=== PATIENT | female | born 1945 | race Caucasian/White ===

== ENCOUNTER → 2023-07-06 15:10 | Outpatient (REF) | payer MEDICARE, BC, SELFPAY | LOC: RAD 15:10 | PROVIDERS: ATTENDING PHYSICIAN Internal Medicine Hematology & Oncology; FAMILY PHYSICIAN Family Medicine | DX: I82.411 Acute embolism and thrombosis of right femoral vein (principal); D64.9 Anemia, unspecified; I82.91 Chronic embolism and thrombosis of unspecified vein | CPT/HCPCS: 71250; 74176; 93971 ==

== ENCOUNTER → 2023-09-18 11:00 | Outpatient (REF) | payer MEDICARE, BC, SELFPAY | LOC: HWRCS 11:00 | PROVIDERS: ATTENDING PHYSICIAN Internal Medicine Nephrology; FAMILY PHYSICIAN Family Medicine | DX: I31.9 Disease of pericardium, unspecified (principal) | CPT/HCPCS: 93306 ==

== ENCOUNTER → 2024-01-02 13:30 | Outpatient (REF) | payer MEDICARE, BC, SELFPAY | LOC: HWWDC 13:30 | PROVIDERS: ATTENDING PHYSICIAN Family Medicine | DX: Z12.31 Encounter for screening mammogram for malignant neoplasm of breast (principal) | CPT/HCPCS: 77063; 77067 ==

== ENCOUNTER 2024-12-06 11:12 | Emergency (ER) | payer MEDICARE, BC, SELFPAY ==
[2024-12-06] VITALS (8 sets, daily range): BP systolic 91–137; BP diastolic 38–64; BMI 18.8
[2024-12-06 13:14] LABS: Hematocrit 32.8 % (37.0-47.0); Hemoglobin 10.3 g/dL (12.0-16.0); Mean Corp Hgb Conc. 31.4 g/dL (33.0-37.0); Mean Corpuscular Volume 83.9 fL (81.0-99.0); Nucleated Red Blood Cells % 0 %; Platelet Count 397 10^3/uL (130-400); Red Cell Dist. Width 17.0 % (11.5-14.5)
[2024-12-06 13:33] LABS: ALT (SGPT) 12 U/L (0-35); AST (SGOT) 19 U/L (14-36); Albumin 2.5 g/dl (3.5-5.0); Alkaline Phosphatase 103 U/L (38-126); Blood Urea Nitrogen 31 mg/dl (7-17); Calcium 8.4 mg/dl (8.4-10.2); Carbon Dioxide 32 mmol/L (22-30); Chloride 95 mmol/L (98-107); Estimated Creatinine Clearance 12 ml/min; Glucose 79 mg/dl (70-99); Lipase 40 U/L (23-300); Potassium 3.1 mmol/L (3.5-5.1); Sodium 131 mmol/L (135-145); Total Protein 6.1 g/dl (6.3-8.2); eGFR 15.77
[2024-12-06] MEDS: OFIRMEV 100 IV (14:06)
--- NOTE | 2024-12-06 14:13 | ED.GENMED ---
History of Present Illness
General
Chief Complaint: Abdominal Symptoms
Source: patient, spouse and family
Exam Limitations: none
Time Seen by Provider: 12/06/24 11:43
Nursing documentation reviewed up to this point in time: agreed with
History of Present Illness
History of Present Illness:
79-year-old female past medical history of hypertension hyperlipidemia, end-stage renal disease currently on dialysis Monday, previous kidney transplant presenting to the emergency department today with concerns of diarrhea and
feeling lightheaded concern for dehydration. Was sent in by the primary care doctor.
Past History
Past History
ED Past Medical History: HTN, Hypercholesterolemia and Renal failure
ED Past Surgical History: Other (History of a kidney transplant)
Social History
Tobacco: Non-smoker
Alcohol: None
Drug: None
Personal:
Living: with family
Employment: Retired
Review of Systems
Review of Systems
Allergies reviewed?: Yes
All Other Systems: ROS reviewed and negative except as documented in HPI and ROS
Phy Exam
Physical Exam
Physical Exam:
GENERAL: Alert , in no apparent distress
EYE: pupils equal and reactive
NECK: Supple, no significant adenopathy.
ENT: o/p clr, mmm.
CARDIAC: Regular rate and rhythm .
LUNGS: Clear breath sounds bilaterally, no acute respiratory distress, no wheezes/rales/rhonchi
ABDOMEN: Soft, without focal tenderness, no r/g, no cvat
NEUROLOGICAL: Alert and oriented, no focal neuro deficits
SKIN: Warm and dry, skin intact.
MUSCULOSKELETAL: No edema, well perfused.
PSYCH: Normal and appropriate interaction.
Sepsis
Sepsis Screening
Sepsis Assessment: Sepsis Ruled Out
Sepsis Screen
Sepsis Screen: Sepsis Ruled Out
Date: 12/06/24
Time: 18:03
Course
Orders/Labs/Results
Orders:
Orders
12/06/24 12:02
Urinalysis Reflex To Culture Urgent
Date Specimen was Collected: 12/06/24
Time Specimen was Collected: 16:09
Iohexol [Omnipaque] See Protocol PO NOW STA
12/06/24 12:03
EKG [Electrocardiogram (*1)] Urgent
Reason for Study: Fatigue / Weakness
CT Abd/pel W Iv And Oral Contr Urgent
Comment:
Reason For Exam: LLQ abd pain, on dialysis
EKG- Treatment ONCE
Acetaminophen 1000MG/100Ml [Ofirmev] 1,000 mg in 100 ml IV ONCE
Acetaminophen IV Indication:: No MD & No Enteral Access
12/06/24 12:34
Complete Blood Count/With Diff Urgent
Comprehensive Metabolic Panel Urgent
Lactic Acid Urgent
Lipase Urgent
12/06/24 14:15
0.9% Sodium Chloride 500 ml [Nss] 500 ml IV BOLUS
Iohexol [Omnipaque] See Protocol PO NOW STA
Abnormal Lab Results
12/06/24
12:34
RBC 3.91 L 10^6/uL
(4.20-5.40)
Hgb 10.3 L g/dL
(12.0-16.0)
Hct 32.8 L %
(37.0-47.0)
MCH 26.3 L pg
(27.0-31.0)
MCHC 31.4 L g/dL
(33.0-37.0)
RDW 17.0 H %
(11.5-14.5)
Abs Immat Gran (auto) 0.2 H 10^3/uL
(0-0.05)
Absolute Monos (auto) 1.2 H 10^3/uL
(0.1-0.6)
Immature Gran % 2.2 H %
(0-0.5)
Monocytes % 15.5 H %
(1.7-9.3)
Sodium 131 L mmol/L
(135-145)
Potassium 3.1 L mmol/L
(3.5-5.1)
Chloride 95 L mmol/L
(98-107)
Carbon Dioxide 32 H mmol/L
(22-30)
BUN 31 H mg/dl
(7-17)
Creatinine 2.9 H mg/dL
(0.6-1.0)
Total Protein 6.1 L g/dl
(6.3-8.2)
Albumin 2.5 L g/dl
(3.5-5.0)
12/06/24 12:34
12/06/24 12:34
Vital Signs
Initial and Last Documented VS:
Initial Vital Signs
Temp Pulse Resp BP Pulse Ox
100.7 F H 115 20 137/64 98
12/06/24 11:17 12/06/24 11:17 12/06/24 11:17 12/06/24 11:17 12/06/24 11:17
Last Documented Vital Signs
Temp Pulse Resp BP Pulse Ox
99.4 F 97 24 113/50 100
12/06/24 12:25 12/06/24 16:00 12/06/24 15:00 12/06/24 16:00 12/06/24 16:00
MDM/Problems Addressed
MDM/Problems Addressed:
79-year-old female presenting to the emergency department today with concerns of feeling weak and tired as well as having diarrhea starting yesterday. Concern of dehydration. Mildly tachycardic on arrival temperature. No white count hemoglobin is
at patient's baseline otherwise labs showing slightly low potassium and sodium level. Renal function tests are at patient's baseline. Slight lab abnormalities were discussed with the patient. CT scan was performed that had changes consistent and
concerning for urinary tract infection. This was explained to the patient thoroughly that this could be a start of a severe illness and that she should be brought in for IV antibiotics and close monitoring. She claims that she would like to go
home she understands the potential risk the potential life threat. This is also cussed with the patient's daughter who understood the ramifications if this is a worsening infection. She was started on oral antibiotic and advised to very close
follow-up and advised to immediately return for any change of mind.
*Pulse Oximetry
SaO2: 93
Oxygen Mode of Delivery: Room air
Patient hypoxic: no (100)
*Critical Care Note
Total Time (30-74mins, 75-104mins- exclusive of procedures): Not Applicable
ED Attending Note
-
Portions of this chart may have been created with voice recognition software.� Occasional wrong word or��sound alike� substitutions may have occurred due to the inherent limitations of voice recognition software.
Discharge Plan
Departure
Patient Disposition: Home (Routine Discharge)
Date of Disposition: 12/06/24
Time of Disposition: 18:00
Patient with high blood pressure during this ER visit?: No
Condition: Fair
Covid-19: Not Applicable
Discharge Problem:
Acute pyelonephritis
Instructions: Urinary tract infections in adults, Leaving Against Medical Advice
Prescriptions:
New
cefpodoxime 200 mg tablet
200 mg PO BID 14 Days Qty: 28 0RF
No Action
cyclosporine modified 25 MG capsule
50 mg PO BID
amlodipine 5 MG tablet
5 mg PO DAILY
propranolol 20 MG tablet
20 mg PO BID
furosemide 40 MG tablet
40 mg PO DAILY
atorvastatin 10 MG tablet
10 mg PO QPM
Centrum Silver 1 EACH tablet
1 ea PO DAILY
cholecalciferol (vitamin D3) 2,000 UNITS tablet
2,000 units PO DAILY
pantoprazole 40 MG tablet,delayed release (DR/EC)
40 mg PO DAILY
carboxymethylcellulose sodium 1 % Drops, Liquid Gel
1 drp OPHTHALMIC (EYE) TID PRN (Reason: dry eyes)
Eliquis 5 mg tablet
5 mg PO BID Qty: 90 0RF
Rx Instructions:
2 tabs (10mg) twice daily x 10 doses, then 1 tab (5mg) twice daily.
Referrals:
Russel Zee MD [Family Provider, [facility]]
Activity Restrictions/Additional Instructions:
Here you were found to have slightly low potassium and sodium level. Additionally there was concern for urinary tract infection on the CT scan. It was recommended to get IV antibiotics and stay in the hospital. Bleeding does put you at potential
risk of worsening illness or . Please take the prescribed antibiotic and follow-up very closely with your hook up. Immediately return for any changes or worsening in symptoms. You can also immediately return for any change of mind.
Interventions
Interventions:
*Risk Screen - Suicide Last Done: 12/06/24 11:17
*General Assessment Last Done: 12/06/24 11:17
*Neglect/Abuse Screening Last Done: 12/06/24 11:17
*ED- Fall Risk Assessment Last Done: 12/06/24 12:29
*ED COVID-19 Vaccine History Last Done: 12/06/24 12:29
ZK-Xdyzvh-Agahxjqhwk Assessment Last Done: 12/06/24 12:29
Discharge Date and Time
Print Language: DJIBOUTIAN
[2024-12-06] MEDS: NSS 500 IV (14:22)
[2024-12-06] MEDS: OMNIPAQUE 50 ML PO (14:26)
== END 2024-12-06 19:05 | disposition home or self-care (01) ==
LOC: EMR 11:12
PROVIDERS: Physician Assistant; EMERGENCY PHYSICIAN Emergency Medicine; FAMILY PHYSICIAN Family Medicine
DX: N10 Acute pyelonephritis (principal); E78.00 Pure hypercholesterolemia, unspecified; I12.0 Hypertensive chronic kidney disease with stage 5 chronic kidney disease or end stage renal disease; N18.6 End stage renal disease; Z99.2 Dependence on renal dialysis; Z94.0 Kidney transplant status
CPT/HCPCS: 96374; 99284; 74177; 80053; 83605; 83690; 85025; 93005; Q9967

== ENCOUNTER 2024-12-28 02:28 | Inpatient (IN) | payer MEDICARE, BC, SELFPAY ==
[2024-12-27 16:48] VITALS: BP 119/51
[2024-12-27 17:08] LABS: Hematocrit 31.0 % (37.0-47.0); Hemoglobin 9.7 g/dL (12.0-16.0); Mean Corp Hgb Conc. 31.3 g/dL (33.0-37.0); Mean Corpuscular Volume 84.9 fL (81.0-99.0); Nucleated Red Blood Cells % 0 %; Platelet Count 369 10^3/uL (130-400); Red Cell Dist. Width 17.8 % (11.5-14.5)
[2024-12-27 17:21] LABS: COVID-19 Antigen Negative (Negative)
[2024-12-27 18:21] LABS: ALT (SGPT) < 10 U/L (0-35); AST (SGOT) 17 U/L (14-36); Albumin 2.5 g/dl (3.5-5.0); Alkaline Phosphatase 112 U/L (38-126); Blood Urea Nitrogen 27 mg/dl (7-17); Calcium 8.6 mg/dl (8.4-10.2); Carbon Dioxide 25 mmol/L (22-30); Chloride 101 mmol/L (98-107); Glucose 84 mg/dl (70-99); Potassium 4.3 mmol/L (3.5-5.1); Sodium 131 mmol/L (135-145); Total Protein 6.6 g/dl (6.3-8.2); eGFR 15.77
[2024-12-27 20:19] VITALS: BP 123/50
[2024-12-27 21:00] VITALS: BP 120/47
[2024-12-27 22:14] VITALS: BMI 22.2
[2024-12-27 22:42] LABS: Urine Character Bloody (Clear)
[2024-12-27 23:10] LABS: Urine Red Blood Cell >100 /HPF (0-2); Urine White Cell >100 /HPF (0-5)
[2024-12-28] VITALS (8 sets, daily range): BP systolic 112–158; BP diastolic 49–78; BMI 20.9
--- NOTE | 2024-12-28 00:24 | ED.GENMED ---
History of Present Illness
General
Chief Complaint: Weakness
Source: patient
Exam Limitations: none
Time Seen by Provider: 12/27/24 20:10
Nursing documentation reviewed up to this point in time: agreed with
History of Present Illness
History of Present Illness:
Patient to ED [facility] complaint of extreme weakness. Symptoms started this AM. Unable to get self OOB without max assistance. Denies fever/chills. Reports poor appetite. To ED accompanied by sister
History of renal failure. Transplant recipient >20years ago. That kidney began to fail and she started dialysis in May. Last week she had a graft placed in left arm. No bruit, no thrill. She states her vascular provider is aware and is
scheduled to see her this week.
Past History
Past History
ED Past Medical History: HTN, Hypercholesterolemia and Renal failure
ED Past Surgical History: Other (History of a kidney transplant)
Social History
Tobacco: Non-smoker
Alcohol: None
Drug: None
Personal:
Living: with family
Employment: Retired
Review of Systems
Review of Systems
Allergies reviewed?: Yes
All Other Systems: ROS reviewed and negative except as documented in HPI and ROS
Constitutional: Reports fatigue
EENT: Reports no symptoms
Respiratory: Reports no symptoms
Cardiac: Reports no symptoms
ABD/GI: Reports anorexia
: Reports no symptoms (Kidney transplant>20yrs ago. Dialysis patient t,thur,sat)
Musculoskeletal: Reports no symptoms
Skin: Reports no symptoms
Neurological: Reports weakness
Psychiatric: Reports no symptoms
Phy Exam
General Physical Exam
General Presentation: mild distress
General age: appears stated age
General Skin: warm and dry
General Habitus: elderly and frail
General Mental: alert
Cardiovascular Exam
Cardiovascular Exam: regular rate/rhythm and no edema
Pulmonary Exam
Pulmonary Exam: lungs clear and no respiratory distress
Gastrointestinal Exam
Gastrointestinal Exam: normal bowel sounds, non tender and soft
Neurological Exam
Neurological Exam: alert and oriented x3
Musculoskeletal Exam
Musculoskeletal Exam: full ROM and neuro vasc intact
Skin Exam
Skin Exam: normal color, warm/dry and no rash
Psychiatric Exam
Psychiatric Exam: normal mood/affect
Course
Orders/Labs/Results
Orders:
Orders
12/27/24 16:55
CBC/With Diff [Complete Blood Count/With Diff] Urgent
CMP [Comprehensive Metabolic Panel] Urgent
COVID-19 Antigen Urgent
Source: Nasal Swab
12/27/24 19:33
Electrocardiogram (*1) Urgent
Reason for Study: Fatigue / Weakness
EKG- Treatment ONCE
12/27/24 20:41
Bladder Scan- Treatment ONCE
12/27/24 21:45
Urinalysis Reflex To Culture Urgent
Date Specimen was Collected: 12/27/24
Time Specimen was Collected: 21:44
Urine Microscopic Reflex Cult Urgent
Urine Culture Urgent
AMAURY Source: U
Specimen Description:
Date Specimen was Collected: 12/27/24
Time Specimen was Collected: 21:44
12/27/24 22:12
CT Abd/pel Without Iv Or Oral Urgent
Comment:
Reason For Exam: hx kidney transplant, urinary retention
12/28/24 00:23
CefTRIAXone [Rocephin] 1,000 mg IV NOW STA
12/28/24 01:32
Admit/Transfer Patient As Directed
Co-Sign Provider:
Level of Care: Inpatient admission
Assign to:: Medical/Surgical
Physician / Group: Arin
Diagnosis: tx pyelonephritis
Reason for Hospitalization: pyelonephritis
Expected length of stay greater than two midnights?: Yes
ELOS- Estimated Length of Stay in days: 2
I certify the patient meets the requirements for IP care: Yes
12/28/24 01:34
Code Status As Directed
Resuscitation Status: Full Code
12/28/24 03:20
Acetaminophen [Tylenol] 650 mg PO Q4HPRN PRN
Bisacodyl [Dulcolax] 10 mg RECTAL [id number] PRN
Docusate W/Senna [Senokot-S] 1 tablet PO BIDPRN PRN
Ondansetron Injectable [Zofran] 4 mg IV Q6HPRN PRN
Polyethylene Glycol Powder [Miralax] 17 grams PO DAILYPRN PRN
propafenone See Dose Instructions PO Q12
12/28/24 03:20
Consult Notification Routine
Specialty to Notify: Nephrology
Date consulting provider notified: 12/28/24
Time consulting provider notified: 07:08
Notified:: Provider
Comment: tt
NEPHROLOGY CONSULT Routine
Consulting Provider: Gaurav Al
Was physician already notified: No
Reason for consult: ESRD on HD T//Mon after failed tx, here w/ pyelo
VTE Contraindication Routine
VTE Mechanical Device Contraindication: Medical Contraindication
Pharmocologic Contraindication: Medical Contraindication
Activity As Directed
Activity Level: With Assistance
Vital Signs As Directed
Frequency: Per unit guidelines
Pt Eval And Treat Routine
Activity Level: With Assistance
12/28/24 Breakfast
Potassium, 4 Gram
At Your Request: Full Participation
Does patient need a safe tray?: No
12/28/24 08:00
Apixaban [Eliquis] 2.5 mg PO BID
Lidocaine [Lidocaine 4% Patch] 1 patch TOPICAL DAILY
Apply Lidocaine patch(s) to:: apply to left posterior hip
Pantoprazole [Protonix] 40 mg PO DAILY
Prednisone [Deltasone] 2.5 mg PO DAILY
cycloSPORINE modified [Neoral] 25 mg PO BID
12/28/24 09:10
Basic Metabolic Panel IN AM
Complete Blood Count/No Diff IN AM
12/28/24 18:00
Atorvastatin [Lipitor] 10 mg PO QPM
12/29/24 00:00
CefTRIAXone [Rocephin] 1,000 mg IV Q24H
Abnormal Lab Results
12/27/24 12/27/24
16:55 21:45
RBC 3.65 L 10^6/uL
(4.20-5.40)
Hgb 9.7 L g/dL
(12.0-16.0)
Hct 31.0 L %
(37.0-47.0)
MCH 26.6 L pg
(27.0-31.0)
MCHC 31.3 L g/dL
(33.0-37.0)
RDW 17.8 H %
(11.5-14.5)
Abs Immat Gran (auto) 0.1 H 10^3/uL
(0-0.05)
Absolute Monos (auto) 1.6 H 10^3/uL
(0.1-0.6)
Immature Gran % 1.5 H %
(0-0.5)
Monocytes % 18.3 H %
(1.7-9.3)
Sodium 131 L mmol/L
(135-145)
BUN 27 H mg/dl
(7-17)
Creatinine 2.9 H mg/dL
(0.6-1.0)
Albumin 2.5 L g/dl
(3.5-5.0)
Urine Ketones 1+ A
(Negative)
Ur Occult Blood Reflex 4+ A
(Negative)
Leukocyte Esterase Rfl 3+ A
(Negative)
Urine RBC >100 A /HPF
(0-2)
Urine WBC (Reflex) >100 A /HPF
(0-5)
Urine Bacteria (Reflex) Many A
(Negative)
Urine Albumin (Reflex) 3+ A
(Neg - Trace)
12/27/24 16:55
12/27/24 16:55
Vital Signs
Initial and Last Documented VS:
Initial Vital Signs
Temp Pulse Resp BP Pulse Ox
99.7 F 93 20 119/51 96
12/27/24 16:48 12/27/24 16:48 12/27/24 16:48 12/27/24 16:48 12/27/24 16:48
Last Documented Vital Signs
Temp Pulse Resp BP Pulse Ox
98.5 F 93 16 129/64 95
12/28/24 15:30 12/28/24 15:30 12/28/24 15:30 12/28/24 15:30 12/28/24 15:30
*Radiology
Radiology exam reviewed: radiology read reviewed
*Pulse Oximetry
SaO2: 96
Oxygen Mode of Delivery: Room air
Patient hypoxic: no
*Critical Care Note
Total Time (30-74mins, 75-104mins- exclusive of procedures): Not Applicable
ED Attending Note
-
Portions of this chart may have been created with voice recognition software.� Occasional wrong word or��sound alike� substitutions may have occurred due to the inherent limitations of voice recognition software.
Discharge Plan
Departure
Patient Disposition: Admit
Date of Disposition: 12/28/24
Time of Disposition: 00:28
Presentation/result/management discussed w/ accepting MD/DO: Hospitalist
Patient with high blood pressure during this ER visit?: No
Condition: Fair
Covid-19: Not Applicable
Discharge Problem:
Acute pyelonephritis
Interventions
Interventions:
*Risk Screen - Suicide Last Done: 12/28/24 03:33
*General Assessment Last Done: 12/27/24 16:48
*Neglect/Abuse Screening Last Done: 12/27/24 16:48
*ED- Fall Risk Assessment Last Done: 12/27/24 21:17
*ED COVID-19 Vaccine History Last Done: 12/28/24 03:33
*Nursing Disposition Last Done: 12/28/24 03:09
ED- Cardiac Assessment Last Done: 12/27/24 21:17
ED- Neurological Assessment Last Done: 12/27/24 21:17
ED- Pulmonary Assessment Last Done: 12/27/24 21:17
Discharge Date and Time
Discharge Date/Time: 12/28/24 03:10
[2024-12-28] MEDS: ROCEPHIN 1000 MG IV ×2 (00:37→23:26)
--- NOTE | 2024-12-28 01:08 | HPS.HSE ---
Family Physician
-
Family Physician: Russel Zee
Chief Complaint
-
weakness
History of Present Illness
This is a 79-year-old female with past medical history significant for end-stage renal disease status post remote kidney transplant 20 years ago now with failure of the transplant kidney and on hemodialysis, hypertension, history of PE, history of
prior urinary tract infection with pyelonephritis who presents to the emergency department with worsening weakness.
She reports sudden onset of weakness that started this a.m. She was unable to get out of bed without maximum assistance. She reports poor appetite. She denies urinary symptoms. She reports poor appetite but no nausea or vomiting or diarrhea.
She reported that kidneys started feeling after the transplant 20 years ago and she is now started dialysis in May. She is status post a left upper extremity AV graft 1 week ago.
She continues to make urine and reports intermittent episodes of dysuria, denies fevers or chills. She denies any pain and no graft site. Denies any redness or swelling there.
She was admitted at the end of November and diagnosed with On Monday. She was treated with antibiotics at that time and finished a 14-day course although the antibiotics was not caught in half by information security systems instructor.
She continues to be on tapering doses of cyclosporine and prednisone.
In the emergency department she had a Tmax of 99.7, blood pressure was 112/50 with a pulse rate of 84 and she is satting 96% on room air. CBC was actually mostly unremarkable with a hemoglobin of 9.7 similar to prior normal platelets and a normal
WBCs. Sodium was 131 otherwise electrolytes are normal BUN/creatinine are consistent with ESRD on hemodialysis.
CT a/p: Right lower quadrant transplant kidney with chronic severe hydronephrosis. There is extensive perinephric stranding which is slightly increased from prior and is concerning for infection. The urinary bladder is nondistended although
demonstrates mild wall thickening which may represent cystitis. Recommend correlation with urinalysis.
Medical History
Past Medical History
Past Medical History: Reports Other
Additional Past Medical History:
essential HTN,
Hypercholesterolemia
chronic Renal failure now on HD
History of a kidney transplant
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
Past Surgical History: Reports Other
Additional Past Surgical History:
renal transplant
Social History
Tobacco: Non-smoker
Alcohol: None
Drug: None
Family History
Family History: Not pertinent
Allergies / Home Medications
Allergies reflects when Allergies were last updated in [employer].
Home Medications with original date entered in [employer]
Allergy/Medication List:
Allergies
Allergy/AdvReac Type Severity Reaction Status Date / Time
Penicillins Allergy Intermediate Itching Verified 05/07/21 09:08
Sulfa (Sulfonamide Allergy Tingling Verified 05/07/21 09:08
Antibiotics)
Home Medications
amlodipine 5 mg tablet 5 mg PO DAILY 02/14/12
cyclosporine modified 25 mg capsule 50 mg PO BID 02/14/12
propranolol 20 mg tablet 20 mg PO BID 02/14/12
atorvastatin 10 mg tablet 10 mg PO QPM 03/15/21
cholecalciferol (vitamin D3) 50 mcg (2,000 unit) tablet 2,000 units PO DAILY 03/15/21
furosemide 40 mg tablet 40 mg PO DAILY 03/15/21
gddmwzof-ldi-jpqbf acid 0.4 mg-lycopene 300 mcg-lutein 250 mcg tablet (Centrum Silver) 1 ea PO DAILY 03/15/21
pantoprazole 40 mg tablet,delayed release 40 mg PO DAILY 05/04/21
carboxymethylcellulose sodium 1 % eye liquid gel drops 1 drp ophthalmic (eye) TID PRN dry eyes 02/14/23
Review of Systems
-
Constitutional: Reports No Symptoms
EENT: Reports No Symptoms
Respiratory: Reports No Symptoms
Cardiac: Reports No Symptoms
Abdomen/GI: Reports No Symptoms
: Reports No Symptoms
Musculoskeletal: Reports Joint Pain
Skin: Reports No Symptoms
Neurological: Reports Weakness
Endocrine: Reports No Symptoms
Hematologic/Lymphatic: Reports No Symptoms
Psych: Reports No Symptoms
Physical Exam
Vital Signs
Vital Signs
Temp Pulse Resp BP Pulse Ox
99.3 F 84 23 112/49 96
12/27/24 20:29 12/28/24 01:00 12/28/24 01:00 12/28/24 00:00 12/28/24 00:31
Physical Exam
General: No Apparent Distress
HEENT: NormoCephalic, Anicteric, Moist mucous membranes, Nose Appears Normal and Ears Appear Normal; No Oxygen
Respiratory: Clear
Cardiac: S1/S2, Regular Rhythm and Murmur
GI: Soft, Non Tender and Non Distended
Rectal: Deferred by Provider
Genito-urinary: Deferred by me
Musculoskeletal: No Clubbing, No Cyanosis, No Edema and Other (left knee effusion. )
Skin: Warm, Dry and Other (Left upper extremity AV graft site appears clean dry and intact, mild erythema but no evidence of an acute infection abscess or thrombus.); No Rash or Jaundice
Neuro: Awake, Alert and Oriented
Psych: Calm
Laboratory Results
-
12/27/24 16:55
12/27/24 16:55
Laboratory Results
Total Bilirubin 0.8 mg/dl (0.2-1.3) 12/27/24 16:55
AST 17 U/L (14-36) 12/27/24 16:55
ALT < 10 U/L (0-35) 12/27/24 16:55
Alkaline Phosphatase 112 U/L (38-126) 12/27/24 16:55
Data Reviewed
-
CT Scan: Report Reviewed by me
Lab Data: Labs Reviewed by me
Old Records: Reviewed
Impression/Plan
-
IMPRESSION:
79-year-old female with a history of failed transplant kidney back on hemodialysis Saturdays, presenting with acute onset of weakness today and found to have a positive UA. She still makes urine. CT of the abdomen pelvis
consistent with transplant pyelonephritis and hydronephrosis. Labs mostly unremarkable and she shows no signs of acute sepsis at this time.
PLAN:
Pyelonephritis -recurrent transplant pyelonephritis suspected as etiology of her acute profound weakness. Chronic hydronephrosis noted but no bladder distention to require an acute intervention.
-Admit to [facility]
-Urine cultures sent
-IV ceftriaxone for now
- pt consult
End-stage renal disease -failed renal transplant from 27 years ago. ESRD Tuesdays and Monday. 1 week status post graft placement with site clean dry and intact without signs of infection or thrombus.
-Continue antirejection department with cyclosporine 25 twice daily, prednisone 2.5 daily
-Nephrology consulted for hemodialysis on Monday
-Renal diet
Pulmonary embolism
-Continue Eliquis 2.5 twice daily
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
- topical lidocaine
- acetaminophen prn
- pt eval
DVT PPX - on eliquis
Code status - Full code at this time
[2024-12-28] MEDS: STERILE WATER FOR INJECTION IV (04:07)
--- NOTE | 2024-12-28 07:50 | W.PN.HOSP.TC ---
Today's Communication/Plan
-
Continue to monitor on telemetry
See plan
Assessment / Plan
Assessment / Plan
Physical Exam
General: Not in acute distress
HEENT: Normocephalic, Moist mucous membranes
Respiratory: Clear to Auscultation Bilaterally
Cardiac: S1/S2, Regular Rhythm
GI: Soft, Non Tender and Non Distended. Positive bowel sounds.
Musculoskeletal: No Cyanosis, No Edema and Other (left knee effusion. )
Skin: Warm, Dry
Neuro: Awake, Alert and Oriented
Psych: Calm
Assessment/Plan
79-year-old female with past medical history significant for end-stage renal disease status post remote kidney transplant 20 years ago now with failure of the transplanted kidney and on hemodialysis (on Mon), hypertension, history of PE,
history of prior urinary tract infection with pyelonephritis who presented to the emergency department with worsening weakness.
She reports sudden onset of weakness that started on 12/27/24 morning. She was unable to get out of bed without maximum assistance. She reported poor appetite. She denied any urinary symptoms. She reported poor appetite but no nausea or vomiting or
diarrhea. She reported that kidneys started feeling after the transplant 20 years ago and she is now started dialysis in May. She is status post a left upper extremity AV graft 1 week prior to presentation.
She continues to make urine and reports intermittent episodes of dysuria, denies fevers or chills. She denied any pain and no graft site. Denied any redness or swelling there.
She was admitted at the end of November and diagnosed with on Monday. She was treated with antibiotics at that time and finished a 14-day course although the antibiotics was not caught in half by installation manager.
She continues to be on tapering doses of cyclosporine and prednisone.
CT a/p: Right lower quadrant transplant kidney with chronic severe hydronephrosis. There is extensive perinephric stranding which is slightly increased from prior and is concerning for infection. The urinary bladder is nondistended although
demonstrates mild wall thickening which may represent cystitis. Recommend correlation with urinalysis.

Presentation with worsening generalized weakness
Dysuria
Pyelonephritis -recurrent transplant pyelonephritis suspected as etiology of her acute profound weakness. Chronic hydronephrosis noted but no bladder distention to require an acute intervention.
-No leukocytosis
-Follow urine cultures
-Continue IV ceftriaxone for now
End-stage renal disease -failed renal transplant from 27 years ago. ESRD Tuesdays and Monday. ~1 week status post graft placement with site clean dry and intact without signs of infection or thrombus.
Living related renal transplant
-Continue antirejection regimen with cyclosporine 25 twice daily, prednisone 2.5 daily
-Nephrology consulted for hemodialysis
-Renal diet
Pulmonary embolism
History of extensive acute right lower extremity DVT in 2022
-Continue Eliquis 2.5 twice daily for VTE prophylaxis
Paroxysmal atrial fibrillation
-Patient's son will bring in patient's home Propafenone
-If family is unable to bring in the Propafenone, then plan to use the Immediate Release version available in the hospital, which would have to be 150 mg TID -- discussed with clinical pharmacist Danelle Sommers and EP labor custodian Dr. Tony, and if
needed the hospital IR version 150 mg TID would be fine
-Monitor for VAUDEVILLE ACTOR effects (dizziness) and consider EKG to check QTc
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
- topical lidocaine
- acetaminophen prn
- Check lower extremity ultrasound for DVT given history of DVT
- pt eval
Chronic Anemia
- Suspected at least in part due to renal disease
Hypertension
Hyperlipidemia
DVT PPX - on eliquis
Code status - Full code at this time
This is a non-billable note.
Anticipated Discharge: 24 - 48 hours
Subjective/Interval History
-
Date of Service: December 28, 2024
Patient was seen and examined. She reported feeling fatigued, no new symptoms or complaints.
Objective Data
-
Labs:
Laboratory Results
12/28/24
06:00
WBC Pending
Hgb Pending
Hct Pending
Plt Count Pending
Sodium Pending
Potassium Pending
Chloride Pending
Carbon Dioxide Pending
BUN Pending
Creatinine Pending
Glucose Pending
Calcium Pending
Vital Signs:
Vital Signs
Temp Pulse Resp BP Pulse Ox
98.6 F 90 16 158/78 97
12/28/24 04:33 12/28/24 04:33 12/28/24 04:33 12/28/24 04:33 12/28/24 04:33
I&O
12/27/24 12/28/24 12/29/24
06:59 06:59 06:59
Output Total 250 / 250
Balance -250 / -250
[2024-12-28] MEDS: ELIQUIS 2.5 MG PO ×2 (07:56→19:57)
[2024-12-28] MEDS: PROTONIX 40 MG PO (07:56)
[2024-12-28] MEDS: DELTASONE 2.5 MG PO (07:56)
[2024-12-28] MEDS: LIDOCAINE 4% PATCH 1 PATCH TOPICAL (07:57)
[2024-12-28] MEDS: NEORAL 25 MG PO ×2 (07:57→19:57)
[2024-12-28 09:34] LABS: Hematocrit 29.9 % (37.0-47.0); Hemoglobin 9.5 g/dL (12.0-16.0); Mean Corp Hgb Conc. 31.8 g/dL (33.0-37.0); Mean Corpuscular Volume 84.0 fL (81.0-99.0); Platelet Count 376 10^3/uL (130-400); Red Cell Dist. Width 17.8 % (11.5-14.5)
[2024-12-28 09:59] LABS: Blood Urea Nitrogen 35 mg/dl (7-17); Calcium 8.9 mg/dl (8.4-10.2); Carbon Dioxide 26 mmol/L (22-30); Chloride 101 mmol/L (98-107); Estimated Creatinine Clearance 10 ml/min; Glucose 75 mg/dl (70-99); Potassium 4.3 mmol/L (3.5-5.1); Sodium 131 mmol/L (135-145); eGFR 12.17
--- NOTE | 2024-12-28 13:25 | W.CON.NEPH ---
Consultation
-
Date/Time Consultation Requested: 12/28/2024 9 AM
Date/Time Consultation Performed: 12/28/2024 12 PM
Requesting Provider: Dr. Hinkle
Performing Provider: Dr. Al
Reason for Consultation: ESRD
Medical History
-
Chief Complaint: ESRD
History of Present Illness:
This is an 79-year-old female who has a failed renal transplant from 20 years ago from her sister who was a perfect match by the report. Prior to that she had been on peritoneal dialysis before the transplant. Ultimately the transplant did fail
and she started dialysis in May 2024. She was dialyzed via a right IJ catheter. Recently, about 11 days ago, she underwent AV graft creation in the left upper arm. Unfortunately it appeared that the bruit disappeared shortly after surgery.
She had contacted vascular surgery at [facility] and has follow-up on Monday for that. She was in the hospital in November at [facility] with what appears to be an acute pyelonephritis. She took a 14-day course of antibiotics for that. She returns
because of weakness as well as suprapubic tenderness as well as some tenderness over the transplant. On evaluation in the emergency room she was felt to have pyelonephritis and was started on antibiotics. We are asked to assist in management of
her dialysis.
Past Medical History
essential HTN,
Hypercholesterolemia
ESRD
Umbilical hernia repair
History of a kidney transplant
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
Living related renal transplant
AV graft left upper extremity
Paroxysmal atrial fibrillation
Social History
Tobacco: Non-Smoker
Alcohol: None
Family History
Family History: Not Pertinent
Allergies / Home Medications
Allergy/AdvReac Type Severity Reaction Status Date / Time
Penicillins Allergy Intermediate Itching Verified 12/27/24 16:47
Sulfa (Sulfonamide Allergy Tingling Verified 12/27/24 16:47
Antibiotics)
�Medication �Instructions �Recorded �Confirmed �Type
cyclosporine modified 25 mg capsule 25 mg PO BID Transplant 02/14/12 12/28/24 History
atorvastatin 10 mg tablet 10 mg PO QPM High Cholesterol 03/15/21 12/28/24 History
yykaddky-seq-jhtsv acid 0.4 1 ea PO DAILY Supplement 03/15/21 12/28/24 History
mg-lycopene 300 mcg-lutein 250 mcg
tablet (Centrum Silver)
pantoprazole 40 mg tablet,delayed 40 mg PO DAILY Gastrointestinal 05/04/21 12/28/24 History
release Issue
apixaban 5 mg tablet (Eliquis) 2.5 mg PO BID 12/28/24 12/28/24 History
prednisone 2.5 mg tablet 2.5 mg PO DAILY 12/28/24 12/28/24 History
propafenone 225 mg 225 mg PO Q12H 12/28/24 12/28/24 History
capsule,extended release 12 hr
Review of Systems
-
Weakness, suprapubic tenderness
All other systems: Negative unless noted
Physical Exam
Vital Signs
Vital Signs
Temp Pulse Resp BP Pulse Ox
98.5 F 97 16 158/78 97
12/28/24 07:30 12/28/24 07:30 12/28/24 07:30 12/28/24 07:30 12/28/24 07:30
Lab Results
WBC 6.3 10^3/uL (4.8-10.8) 12/28/24 09:10
RBC 3.56 10^6/uL (4.20-5.40) L 12/28/24 09:10
Hgb 9.5 g/dL (12.0-16.0) L 12/28/24 09:10
Hct 29.9 % (37.0-47.0) L 12/28/24 09:10
Plt Count 376 10^3/uL (130-400) 12/28/24 09:10
Sodium 131 mmol/L (135-145) L 12/28/24 09:10
Potassium 4.3 mmol/L (3.5-5.1) 12/28/24 09:10
Chloride 101 mmol/L (98-107) 12/28/24 09:10
Carbon Dioxide 26 mmol/L (22-30) 12/28/24 09:10
BUN 35 mg/dl (7-17) H 12/28/24 09:10
Creatinine 3.6 mg/dL (0.6-1.0) H 12/28/24 09:10
eGFR 12.17 12/28/24 09:10
Glucose 75 mg/dl (70-99) 12/28/24 09:10
Calcium 8.9 mg/dl (8.4-10.2) 12/28/24 09:10
Albumin 2.5 g/dl (3.5-5.0) L 12/27/24 16:55
Laboratory Tests
12/06/24 12/27/24
12:34 21:45
Hgb 10.3 L
Creatinine 2.9 H
Urine pH 6.5
Ur Specific Herminie 1.020
Ur Occult Blood Reflex 4+ A
Urine Nitrite (Reflex) Negative
Leukocyte Esterase Rfl 3+ A
Urine RBC >100 A
Urine WBC (Reflex) >100 A
Urine Bacteria (Reflex) Many A
Urine Albumin (Reflex) 3+ A
CT abdomen pelvis 12/27/2024
IMPRESSION:
Right lower quadrant transplant kidney with chronic severe hydronephrosis. There is extensive perinephric stranding which is slightly increased from prior and is concerning for infection. The urinary bladder is nondistended although demonstrates
mild wall thickening which may represent cystitis. Recommend correlation with urinalysis.
There are multiple enlarged retroperitoneal lymph nodes inferiorly, possibly reactive although follow-up should BE considered to ensure resolution.
Cholelithiasis.
Colonic diverticulosis.
Mild generalized body wall edema.
Physical Exam
Patient is awake alert oriented and in no distress. Mood and affect were pleasant, insight and judgment were good. Pupils are equal round and reactive to light, extraocular movements are intact, sclera were anicteric. Hearing was normal, ears and
nose are intact. Oropharynx was clear. Neck was supple with trachea midline and no thyromegaly. Heart was regular rate and rhythm without rubs. Lower extremities without edema. Lungs were clear to auscultation bilaterally and with normal
excursion. Abdomen was soft, nontender, with normal active bowel sounds, and no hepatosplenomegaly. Skin was without rash and with normal turgor. Left upper arm AV graft without thrill or bruit. There is suprapubic tenderness as well as tenderness
over the lower aspect of the right lower quadrant kidney transplant
Data Reviewed
-
CT Scan: Report Reviewed by me
Medical Tests (Nuc Med, Echo etc): Image Personally Visualized and interpreted (EKG 12/27/2024 by my reading normal sinus rhythm left axis deviation septal Q)
Labs: Labs Reviewed by me
Old Records: Reviewed
Assessment/Plan
-
Assessment
Hypertension
ESRD
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
Transplant pyelonephritis
UTI
Paroxysmal atrial fibrillation
Failed AV graft
Plan
Dialysis today
IV antibiotics
Maintain low-dose immunosuppression
Maintain anticoagulation
--- NOTE | 2024-12-28 15:10 | CM ---
Initial assessment completed. Patient is a 79-year-old female with past medical history significant for end-stage renal disease status post remote kidney transplant 20 years ago now with failure of the transplant kidney and on hemodialysis,
hypertension, history of PE, history of prior urinary tract infection with pyelonephritis who presents to the emergency department with worsening weakness.
Patient resides w/ spouse in a multi-level home, no steps to enter. Patient has a 1st floor set up. Patient uses RW, has w/c, ramp entry into the home. Independent w/ ADLs, supervision for bathing and dressing. No SNF/HC hx. Patient goes to HD
3x/week. Patient has aide support (Monday-Monday) for 8 hours/day. Assists w/ cooking, cleaning, supervision for showers and dressing.
Address, point of contact and insurance verified
PCP: Russel Zee
Pharmacy: [facility]
Therapy assessed, recommending home PT at d/c. Will review w/ patient and place referral prior to d/c
Plan: Home w/ HC services
[2024-12-28] MEDS: HEPARIN 500 UNITS IV ×2 (15:40→16:40)
--- NOTE | 2024-12-28 16:44 | W.PN.NEPH.HD ---
Assessment
-
Seen on HD. no new complaints. VSS, access CVC
Progress Note - Hemodialysis
-
Date of Service: December 28, 2024
Duration: 30 minutes and 3 hours
Potassium Bath: 3
Calcium Bath: 2.5
Opti-Dialyzer: 160
Ultrafiltration: Other
Blood Flow: 400
Dialysate Flow: 600
Heparin: 500x2
EPO: [id number] units
[2024-12-28] MEDS: RETACRIT 10000 UNITS IV (17:46)
[2024-12-28] MEDS: TYLENOL 650 MG PO ×2 (17:46→23:27)
[2024-12-28] MEDS: LIPITOR 10 MG PO (17:47)
[2024-12-28] MEDS: HEPARIN 3600 UNITS INTRACATH (19:00)
[2024-12-28] MEDS: REMOVE LIDOCAINE PATCH 1 PATCH REMOVE (20:00)
[2024-12-28] MEDS: NON-FORMULARY ITEM 225 MG PO (20:00)
[2024-12-28] MEDS: STERILE WATER FOR INJECTION 10 ML IV (23:27)
[2024-12-29 03:21] VITALS: BP 133/57
[2024-12-29 09:00] VITALS: BP 129/71
[2024-12-29] MEDS: PROTONIX 40 MG PO (09:17)
[2024-12-29] MEDS: DELTASONE 2.5 MG PO (09:17)
[2024-12-29] MEDS: ELIQUIS 2.5 MG PO (09:18)
[2024-12-29] MEDS: LIDOCAINE 4% PATCH 1 PATCH TOPICAL (09:18)
[2024-12-29] MEDS: NEORAL 25 MG PO ×2 (09:18→19:48)
[2024-12-29] MEDS: NON-FORMULARY ITEM 225 MG PO ×2 (09:24→19:47)
[2024-12-29] MEDS: TYLENOL 650 MG PO ×2 (09:30→19:49)
--- NOTE | 2024-12-29 09:41 | W.PN.HOSP.TC ---
Today's Communication/Plan
-
Antibiotics changed to Cefepime given urine culture result -- once ID of organism comes back, maybe can narrow back down to Rocephin
Eliquis dose increased given acute DVT on RLE
Assessment / Plan
Assessment / Plan
Physical Exam
General: Not in acute distress
HEENT: Normocephalic, Moist mucous membranes
Respiratory: Clear to Auscultation Bilaterally
Cardiac: S1/S2, Regular Rhythm
GI: Soft, Non Tender and Non Distended. Positive bowel sounds.
Musculoskeletal: No Cyanosis. RLE edema around right knee.
Skin: Warm, Dry
Neuro: Awake, Alert and Oriented
Psych: Calm
Assessment/Plan
79-year-old female with past medical history significant for end-stage renal disease status post remote kidney transplant 20 years ago now with failure of the transplanted kidney and on hemodialysis (on Mon), hypertension, history of PE,
history of prior urinary tract infection with pyelonephritis who presented to the emergency department with worsening weakness.
She reports sudden onset of weakness that started on 12/27/24 morning. She was unable to get out of bed without maximum assistance. She reported poor appetite. She denied any urinary symptoms. She reported poor appetite but no nausea or vomiting or
diarrhea. She reported that kidneys started feeling after the transplant 20 years ago and she is now started dialysis in May. She is status post a left upper extremity AV graft 1 week prior to presentation.
She continues to make urine and reports intermittent episodes of dysuria, denies fevers or chills. She denied any pain and no graft site. Denied any redness or swelling there.
She was admitted at the end of November and diagnosed with on Monday. She was treated with antibiotics at that time and finished a 14-day course although the antibiotics was not caught in half by supervisor photoengraving.
She continues to be on tapering doses of cyclosporine and prednisone.
CT a/p: Right lower quadrant transplant kidney with chronic severe hydronephrosis. There is extensive perinephric stranding which is slightly increased from prior and is concerning for infection. The urinary bladder is nondistended although
demonstrates mild wall thickening which may represent cystitis. Recommend correlation with urinalysis.

Presentation with worsening generalized weakness
Dysuria
Pyelonephritis -recurrent transplant pyelonephritis suspected as etiology of her acute profound weakness. Chronic hydronephrosis noted but no bladder distention to require an acute intervention.
-No leukocytosis
-Follow urine cultures -- preliminary urine cultures growing gram negative bacilli
-Therefore, given the preliminary urine culture result above, and given that patient has complicated UTI in setting of ESRD, broadened antibiotics to Cefepime (stopped Ceftriaxone)
-Based on the urine cultures, can narrow antibiotics and consider change to oral antibiotics soon
End-stage renal disease -failed renal transplant from 27 years ago. ESRD Tuesdays and Monday. ~1 week status post graft placement with site clean dry and intact without signs of infection or thrombus.
Living related renal transplant
-Continue antirejection regimen with cyclosporine 25 twice daily, prednisone 2.5 daily
-Nephrology consulted for hemodialysis
-Renal diet
New Acute Right Lower Extremity this Hospitalization (12/28/24 - present)
Pulmonary embolism
History of extensive acute right lower extremity DVT in 2022
-Acute RLE DVT found on ultrasound this admission for leg pains
-Per hematology, this is not an Eliquis failure (patient was on Eliquis 2.5 mg BID outpatient)
-Therefore, increase Eliquis to 5 mg BID (not doing 10 mg BID loading dose due to her small size and advanced age, presumed uremic platelet dysfunction and microcytic anemia), as per hematology
-No Heparin Drip needed
-Appreciate hematology
Paroxysmal atrial fibrillation
-Patient's son Tavares brought in patient's home Propafenone on 12/29/24
-Monitor for PARKING METER ATTENDANT effects (dizziness) and consider EKG to check QTc
Right Eye Tearing/Soreness/Mild Erythema
-Refresh eye drops -- ordered 1 drop QID scheduled
-No indication for antibiotics or steroids (I confirmed this with ophthalmology after sending them images of patient's right eye; this was done with patient's permission)
-Cool compress (with the eyes closed) -- BUT NOT ICE
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
- topical lidocaine
- acetaminophen prn
- Check lower extremity ultrasound for DVT given history of DVT -- revealed RLE DVT
- PT
Chronic Anemia
- Suspected at least in part due to renal disease
Hypertension
Hyperlipidemia
DVT Prophylaxis: Eliquis
Code status - Full code at this time
On 12/29/24, I spoke to patient's daughter Mary extensively, I also called Dr. Rosales Cunningham (vascular surgeon with [facility]) at [phone], I explained to him patient's recent surgery (by vascular surgeon Dr. Barnett) of the left
upper extremity AV fistula on 12/18/24, and he said it was okay to increase anticoagulation for DVT.
Total time spent today on caring for patient, including speaking with patient's daughter, speaking with patient's sister inside patient's room, speaking with patient, chart review, documentation, placing orders, speaking with specialist, and
speaking with [facility] Vascular surgeon, was 90 minutes.
Anticipated Discharge: 24 - 48 hours
Subjective/Interval History
-
Date of Service: December 29, 2024
Patient was seen and examined. She denied any chest pain or shortness of breath.
Objective Data
-
Labs:
Laboratory Results
12/29/24
06:00
WBC Pending
Hgb Pending
Hct Pending
Plt Count Pending
Sodium Pending
Potassium Pending
Chloride Pending
Carbon Dioxide Pending
BUN Pending
Creatinine Pending
Glucose Pending
Calcium Pending
Vital Signs:
Vital Signs
Temp Pulse Resp BP Pulse Ox
98.2 F 110 18 129/71 98
12/29/24 09:00 12/29/24 09:00 12/29/24 09:00 12/29/24 09:00 12/29/24 09:00
I&O
12/28/24 12/29/24 12/30/24
06:59 06:59 06:59
Intake Total 1200 / 1200
Output Total 250 / 250
Balance -250 / -250 1200 / 1200
[2024-12-29 10:30] LABS: Hematocrit 32.9 % (37.0-47.0); Hemoglobin 10.2 g/dL (12.0-16.0); Mean Corp Hgb Conc. 31.0 g/dL (33.0-37.0); Mean Corpuscular Volume 85.0 fL (81.0-99.0); Nucleated Red Blood Cells % 0 %; Platelet Count 416 10^3/uL (130-400); Red Cell Dist. Width 18.2 % (11.5-14.5)
[2024-12-29 10:43] LABS: Blood Urea Nitrogen 16 mg/dl (7-17); Calcium 8.5 mg/dl (8.4-10.2); Carbon Dioxide 30 mmol/L (22-30); Chloride 102 mmol/L (98-107); Estimated Creatinine Clearance 16 ml/min; Glucose 96 mg/dl (70-99); Magnesium 1.8 mg/dl (1.6-2.3); Potassium 4.3 mmol/L (3.5-5.1); Sodium 135 mmol/L (135-145); eGFR 20.83
[2024-12-29 12:00] VITALS: BP 118/51
--- NOTE | 2024-12-29 12:52 | W.PN.NEPH.PH ---
Today's Communication / Plan
-
HD monday
Assessment/Plan
-
Assessment
Hypertension
ESRD
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
Transplant pyelonephritis
UTI
Paroxysmal atrial fibrillation
Failed AV graft
Plan
Dialysis monday
IV antibiotics
Maintain low-dose immunosuppression
for anticoagulation
-
-
Date of Service: December 29, 2024
CC / HPI / ROS
-
Chief Complaint:
ESRD
History of Present Illness:
tolerated HD yesterday
BP stable
RLE DVT on US
on abx for transplant pyelonephritis
Review of Systems:
no CP/SOB
Labs
-
Labs:
Sodium 135 mmol/L (135-145) 12/29/24 09:56
Potassium 4.3 mmol/L (3.5-5.1) 12/29/24 09:56
Chloride 102 mmol/L (98-107) 12/29/24 09:56
Carbon Dioxide 30 mmol/L (22-30) 12/29/24 09:56
BUN 16 mg/dl (7-17) 12/29/24 09:56
Creatinine 2.3 mg/dL (0.6-1.0) H 12/29/24 09:56
eGFR 20.83 12/29/24 09:56
Glucose 96 mg/dl (70-99) 12/29/24 09:56
Calcium 8.5 mg/dl (8.4-10.2) 12/29/24 09:56
Albumin 2.5 g/dl (3.5-5.0) L 12/27/24 16:55
Physical Exam
-
Vital Signs:
Vital Signs
Temp Pulse Resp BP Pulse Ox
97.8 F 95 16 118/51 98
09/14/25 12:00 12/29/24 12:00 12/29/24 12:00 12/29/24 12:00 12/29/24 12:00
Cardiovascular:: Regular rate and rhythm
Respiratory:: Bilateral: Coarse
Lung Excursion:: Normal
Abdomen:: Nontender and Soft
Bowel Sounds:: Normal
Extremity Edema:: None: Bilateral:
[2024-12-29 14:22] LABS: Hematocrit 28.2 % (37.0-47.0); Hemoglobin 9.3 g/dL (12.0-16.0); Mean Corp Hgb Conc. 33.0 g/dL (33.0-37.0); Mean Corpuscular Volume 80.3 fL (81.0-99.0); Red Cell Dist. Width 17.4 % (11.5-14.5)
[2024-12-29] MEDS: REFRESH EYE DROPS (PF) OPHTH (15:09)
[2024-12-29] MEDS: REFRESH EYE DROPS (PF) 1 DROPS OPHTH ×3 (15:09→21:14)
[2024-12-29 16:00] VITALS: BP 119/64
[2024-12-29] MEDS: LIPITOR 10 MG PO (17:22)
--- NOTE | 2024-12-29 17:36 | CON.ONC ---
Consultation
-
Date Consultation Requested: 12/29/24
Date Consultation Performed: 12/29/24
Requesting Provider: Mayo Figueroa MD
Performing Provider: Araceli Chang MD
Reason for Consultation: progressive DVT on Eliquis
Impression
Impression
RLE DVT, progressed from 06/2023
Plan
Plan
Unclear when the progression to involve superficial femoral vein may have occurred.
Currently she has no signs or symptoms of RLE clot. She feels that the leg pain on the left was more sciatic in nature.
With unclear chronicity of superficial femoral vein clot, will increase Eliquis to 5 mg BID and recheck Dopplers in 3 months.
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
Heparin gtt cancelled and Eliquis 5 BID ordered.
Thank you for consult, will follow along with you.
Patient History
History of Present Illness
Chyna Staples is an 79-year-old female with past medical history significant for end-stage renal disease status post remote kidney transplant 20 years ago now with failure of the transplant kidney and on hemodialysis, hypertension, history of PE,
history of prior urinary tract infection with pyelonephritis who presents to the emergency department with worsening weakness. Imaging concerning for pyelonephritis of transplanted kidney. She c/o LLE pain and underwent b/l LE Dopplers which
showed extension of RLE DVT previously seen on 06/2023 Dopplers. Specifically, thrombus was previously present in popliteal and peritoneal vein in 06/2023 whereas on 12/29/24 study, there is non-occlusive thrombus in popliteal and superficial femoral
veins. Pt is asymptomatic. She has been on Eliquis 2.5 BID for some time. Plan was initially to start heparin gtt but she is a very difficult stick and heparin has not yet been started.
Past-Medical/Surgical History
Past Medical History
Essential HTN
Hypercholesterolemia
Chronic Renal failure now back on HD
History of a kidney transplant now in rejection
Anemia of renal insufficiency
Surgical History
Renal transplant from sister 28 years ago
Social History
Tobacco: Non-smoker
Alcohol: None
Drug: None
Family History
Family History: Not pertinent
Patient Medication
�Medication �Instructions �Recorded �Confirmed �Last Taken �Type
cyclosporine modified 25 mg capsule 25 mg PO BID Transplant 02/14/12 12/28/24 05/07/21 07:30 History
atorvastatin 10 mg tablet 10 mg PO QPM High Cholesterol 03/15/21 12/28/24 05/06/21 22:30 History
qiryztyt-xxn-lwvfe acid 0.4 1 ea PO DAILY Supplement 03/15/21 12/28/24 05/05/21 History
mg-lycopene 300 mcg-lutein 250 mcg
tablet (Centrum Silver)
pantoprazole 40 mg tablet,delayed 40 mg PO DAILY Gastrointestinal 05/04/21 12/28/24 05/06/21 08:00 History
release Issue
apixaban 5 mg tablet (Eliquis) 2.5 mg PO BID Blood Clot 12/28/24 12/28/24 Unknown History
Prevention/Tx
prednisone 2.5 mg tablet 2.5 mg PO DAILY Transplant 12/28/24 12/28/24 Unknown History
propafenone 225 mg 225 mg PO Q12H Arrhythmia 12/28/24 12/28/24 Unknown History
capsule,extended release 12 hr
Active Medications
Generic Name Dose Route Start Last Admin
Trade Name Freq PRN Reason Stop Dose Admin
Acetaminophen 650 mg 12/28/24 03:20 12/29/24 09:30
Acetaminophen 325 Mg Tablet PO 01/25/25 03:19 650 mg
Q4HPRN PRN Administration
mild pain/BAUMANN/temp> 100.4F
Apixaban 5 mg 12/29/24 20:00
Apixaban (Eliquis) 5 Mg Tablet PO 01/26/25 19:59
BID DEON
Artificial Tears 1 drops 12/29/24 12:45 12/29/24 17:22
Artificial Tears Pf (Refresh) 10 Drop Droperette OPHTH 01/26/25 12:44 1 drops
QID DEON Administration
Atorvastatin Calcium 10 mg 12/28/24 18:00 12/29/24 17:22
Atorvastatin (Lipitor) 10 Mg Tablet PO 01/25/25 17:59 10 mg
QPM DEON Administration
Bisacodyl 10 mg 12/28/24 03:20
Bisacodyl 10 Mg Rectal Suppository RECTAL 01/25/25 03:19
[id number] PRN
constipation
Ceftriaxone Sodium 1,000 mg 12/29/24 00:00 12/28/24 23:26
Ceftriaxone 1000 Mg / 10 Ml Vial IV 1,000 mg
Q24H EDON Administration
Cyclosporine 25 mg 12/28/24 08:00 12/29/24 09:18
Cyclosporine, Modified (Neoral) 25 Mg Capsule PO 01/25/25 07:59 25 mg
BID DEON Administration
Lidocaine 1 patch 12/28/24 08:00 12/29/24 09:18
Lidocaine 4% Topical Patch TOPICAL 01/25/25 07:59 1 patch
DAILY DEON Administration
Protocol
Propafenone 225 Mg 0 mg 12/28/24 20:00 12/29/24 09:24
Capsule (1 Capsule) PO 01/25/25 19:59 225 mg
Po Q12h Q12 DEON Administration
Ondansetron HCl 4 mg 12/28/24 03:20
Ondansetron 4 Mg/2 Ml Vial IV 01/25/25 03:19
Q6HPRN PRN
nausea and vomiting
Pantoprazole Sodium 40 mg 12/28/24 08:00 12/29/24 09:17
Pantoprazole 40 Mg Delayed Release Tablet PO 01/25/25 07:59 40 mg
DAILY DEON Administration
Patch Removal 1 patch 12/28/24 20:00 12/28/24 20:00
Remove Lidocaine Patch REMOVE 01/25/25 19:59 1 patch
DAILY@2000 DEON Administration
Polyethylene Glycol 17 grams 12/28/24 03:20
Polyethylene Glycol Powder 17 Grams Packet PO 01/25/25 03:19
DAILYPRN PRN
constipation
Prednisone 2.5 mg 12/28/24 08:00 12/29/24 09:17
Prednisone 2.5 Mg Tablet PO 01/25/25 07:59 2.5 mg
DAILY DEON Administration
Senna/Docusate Sodium 1 tablet 12/28/24 03:20
Docusate W/Senna (Zandra-Colace) Tablet PO 01/25/25 03:19
BIDPRN PRN
constipation
Sodium Chloride 0 flush 12/28/24 04:00
Sodium Chloride 0.9% (Flush) Syringe IV 01/25/25 03:59
PER PROTOCOL DEON
Sterile Water 10 ml 12/28/24 00:00 12/28/24 23:27
Sterile Water For Injection 10 Ml Vial IV 01/25/25 00:00 10 ml
Q24H DEON Administration
Review of Systems
-
History Source: Patient and Records
All Other Systems: Reviewed and Negative
Physical Exam
-
Patient appears comfortable, in no acute distress. Appears stated age. Head atraumatic, normocephalic. Sclera anicteric, conjunctiva pink, oropharynx clear. No cervical, supraclavicular or axillary adenopathy. Heart rate and rhythm regular, no
murmurs, rubs or gallops. Lungs clear without rales or rhonchi. No kyphosis. Abdomen soft, non-tender. Extremities without clubbing, cyanosis or edema. Neurologic exam grossly non-focal, no hemiplegia.
Labs
Lab Results
WBC 4.7 10^3/uL (4.8-10.8) L 12/29/24 14:05
RBC 3.51 10^6/uL (4.20-5.40) L 12/29/24 14:05
Hgb 9.3 g/dL (12.0-16.0) L 12/29/24 14:05
Hct 28.2 % (37.0-47.0) L 12/29/24 14:05
MCV 80.3 fL (81.0-99.0) L 12/29/24 14:05
MCH 26.5 pg (27.0-31.0) L 12/29/24 14:05
MCHC 33.0 g/dL (33.0-37.0) 12/29/24 14:05
RDW 17.4 % (11.5-14.5) H 12/29/24 14:05
Plt Count 10^3/uL (130-400) 12/29/24 14:05
MPV Not Reportable 12/29/24 14:05
Abs Immat Gran (auto) 0.1 10^3/uL (0-0.05) H 12/29/24 09:56
Absolute Neuts (auto) 2.9 10^3/uL (1.4-6.5) 12/29/24 09:56
Absolute Lymphs (auto) 2.0 10^3/uL (1.2-3.4) 12/29/24 09:56
Absolute Monos (auto) 0.8 10^3/uL (0.1-0.6) H 12/29/24 09:56
Absolute Eos (auto) 0.0 10^3/uL (0-0.7) 12/29/24 09:56
Absolute Basos (auto) 0.1 10^3/uL (0-0.2) 12/29/24 09:56
Immature Gran % 1.5 % (0-0.5) H 12/29/24 09:56
Neutrophils % 48.6 % (42.2-75.2) 12/29/24 09:56
Lymphocytes % 34.2 % (20.5-51.1) 12/29/24 09:56
Monocytes % 14.2 % (1.7-9.3) H 12/29/24 09:56
Eosinophils % 0.3 % (0-6) 12/29/24 09:56
Basophils % 1.2 % (0-2) 12/29/24 09:56
Creatinine 2.3 mg/dL (0.6-1.0) H 12/29/24 09:56
Vital Signs
Vital Signs
Temp Pulse Resp BP Pulse Ox
98.2 F 93 18 119/64 97
12/29/24 16:00 12/29/24 16:00 12/29/24 16:00 12/29/24 16:00 12/29/24 16:00
[2024-12-29] MEDS: ELIQUIS 5 MG PO (19:47)
[2024-12-29] MEDS: REMOVE LIDOCAINE PATCH 1 PATCH REMOVE (19:47)
[2024-12-29 19:58] VITALS: BP 132/66
[2024-12-29] MEDS: MAXIPIME 1000 MG IV (21:14)
[2024-12-29] MEDS: STERILE WATER FOR INJECTION 10 ML IV (21:14)
[2024-12-29 23:35] VITALS: BP 140/72
[2024-12-30] VITALS (7 sets, daily range): BP systolic 123–152; BP diastolic 61–80; O2SAT 96; BMI 21.2
[2024-12-30 08:52] LABS: Hematocrit 29.2 % (37.0-47.0); Hemoglobin 9.4 g/dL (12.0-16.0); Mean Corp Hgb Conc. 32.2 g/dL (33.0-37.0); Mean Corpuscular Volume 83.0 fL (81.0-99.0); Red Cell Dist. Width 17.9 % (11.5-14.5)
[2024-12-30 08:58] LABS: Blood Urea Nitrogen 22 mg/dl (7-17); Calcium 8.6 mg/dl (8.4-10.2); Carbon Dioxide 27 mmol/L (22-30); Chloride 101 mmol/L (98-107); Estimated Creatinine Clearance 12 ml/min; Glucose 71 mg/dl (70-99); Potassium 4.0 mmol/L (3.5-5.1); Sodium 131 mmol/L (135-145); eGFR 15.14
[2024-12-30] MEDS: NEORAL 25 MG PO ×2 (09:40→20:02)
[2024-12-30] MEDS: ELIQUIS 5 MG PO ×2 (09:40→20:05)
[2024-12-30] MEDS: DELTASONE 2.5 MG PO (09:40)
[2024-12-30] MEDS: PROTONIX 40 MG PO (09:40)
[2024-12-30] MEDS: LIDOCAINE 4% PATCH 1 PATCH TOPICAL (09:40)
[2024-12-30] MEDS: REFRESH EYE DROPS (PF) 1 DROPS OPHTH ×4 (09:41→21:36)
[2024-12-30] MEDS: NON-FORMULARY ITEM 225 MG PO ×2 (09:44→20:05)
[2024-12-30] MEDS: MAXIPIME 1000 MG IV (09:47)
[2024-12-30] MEDS: STERILE WATER FOR INJECTION 10 ML IV ×2 (09:47→11:20)
[2024-12-30] MEDS: TYLENOL 650 MG PO ×2 (10:06→20:02)
[2024-12-30] MEDS: ROCEPHIN 1000 MG IV (11:19)
[2024-12-30 11:58] LABS: Platelet Count 351 10^3/uL (130-400)
[2024-12-30 11:59] LABS: Nucleated Red Blood Cells % 0.9 %
--- NOTE | 2024-12-30 12:48 | W.PN.NEPH.PH ---
Today's Communication / Plan
-
Dialysis tomorrow
Assessment/Plan
-
Assessment
Hypertension
ESRD
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
Transplant pyelonephritis
UTI
Paroxysmal atrial fibrillation
Failed AV graft
Plan
TTS
IV antibiotics
Maintain low-dose immunosuppression
for anticoagulation
No acute need for dialysis today
Refer to orders for tomorrow
-
-
Date of Service: December 30, 2024
CC / HPI / ROS
-
Chief Complaint:
ESRD
History of Present Illness:
tolerated HD yesterday
BP stable
RLE DVT on US
on abx for transplant pyelonephritis
Review of Systems:
no CP/SOB
Labs
-
Labs:
WBC 5.4 10^3/uL (4.8-10.8) 12/30/24 08:13
RBC 3.52 10^6/uL (4.20-5.40) L 12/30/24 08:13
Hgb 9.4 g/dL (12.0-16.0) L 12/30/24 08:13
Hct 29.2 % (37.0-47.0) L 12/30/24 08:13
Plt Count 351 10^3/uL (130-400) 12/30/24 08:13
Sodium 131 mmol/L (135-145) L 12/30/24 08:13
Potassium 4.0 mmol/L (3.5-5.1) 12/30/24 08:13
Chloride 101 mmol/L (98-107) 12/30/24 08:13
Carbon Dioxide 27 mmol/L (22-30) 12/30/24 08:13
BUN 22 mg/dl (7-17) H 12/30/24 08:13
Creatinine 3.0 mg/dL (0.6-1.0) H 12/30/24 08:13
eGFR 15.14 12/30/24 08:13
Glucose 71 mg/dl (70-99) 12/30/24 08:13
Calcium 8.6 mg/dl (8.4-10.2) 12/30/24 08:13
Albumin 2.5 g/dl (3.5-5.0) L 12/27/24 16:55
Physical Exam
-
Vital Signs:
Vital Signs
Temp Pulse Resp BP Pulse Ox
98.3 F 98 16 135/61 97
12/30/24 11:06 12/30/24 11:06 12/30/24 11:06 12/30/24 11:06 12/30/24 11:06
Cardiovascular:: Regular rate and rhythm
Respiratory:: Bilateral: Coarse
Lung Excursion:: Normal
Abdomen:: Nontender and Soft
Bowel Sounds:: Normal
Extremity Edema:: None: Bilateral:
--- NOTE | 2024-12-30 14:42 | W.PN.HOSP.TC ---
Today's Communication/Plan
-
Continue IV ceftriaxone
Assessment / Plan
Assessment / Plan
Assessment/Plan
79F w/ ESRD s/p remote kidney transplant 20 years ago now with failure of the transplanted kidney and on hemodialysis (on Mon), hypertension, history of PE, history of prior urinary tract infection with pyelonephritis who p/w worsening
weakness, found to have pyelonephritis.
Pyelonephritis
Chronic hydronephrosis noted but no bladder distention to require an acute intervention.
-No leukocytosis
Urine culture E. coli pansensitive, continue ceftriaxone. Changed to oral on discharge
End-stage renal disease
-failed renal transplant from 27 years ago. ESRD Tuesdays and Monday. ~1 week status post graft placement with site clean dry and intact without signs of infection or thrombus.
Living related renal transplant
-Continue antirejection regimen with cyclosporine 25 twice daily, prednisone 2.5 daily
-Nephrology consulted for hemodialysis
-Renal diet
New Acute Right Lower Extremity this Hospitalization (12/28/24 - present)
Pulmonary embolism
History of extensive acute right lower extremity DVT in 2022
-Acute RLE DVT found on ultrasound this admission for leg pains
-Per hematology, this is not an Eliquis failure (patient was on Eliquis 2.5 mg BID outpatient)
-Therefore, increase Eliquis to 5 mg BID (not doing 10 mg BID loading dose due to her small size and advanced age, presumed uremic platelet dysfunction and microcytic anemia), as per hematology
-No Heparin Drip needed
-Appreciate hematology
Paroxysmal atrial fibrillation
-Patient's son Tavares brought in patient's home Propafenone on 12/29/24
-Monitor for REFERRAL [employer] INFORMATION AIDE effects (dizziness) and consider EKG to check QTc
Right Eye Tearing/Soreness/Mild Erythema
-Refresh eye drops -- ordered 1 drop QID scheduled
-No indication for antibiotics or steroids (I confirmed this with ophthalmology after sending them images of patient's right eye; this was done with patient's permission)
-Cool compress (with the eyes closed) -- BUT NOT ICE
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
- topical lidocaine
- acetaminophen prn
- PT
Chronic Anemia
- Suspected at least in part due to renal disease
Hypertension
Hyperlipidemia
DVT Prophylaxis: Eliquis
Code status - Full code at this time
Anticipated Discharge: 24 - 48 hours
Subjective/Interval History
-
Date of Service: December 30, 2024
Patient states she has pain in her left buttocks when she lays on it, has been ongoing for months, thinks it is sciatica
Objective Data
-
Labs:
Laboratory Results
12/30/24
08:13
WBC 5.4
Hgb 9.4 L
Hct 29.2 L
Plt Count 351
Sodium 131 L
Potassium 4.0
Chloride 101
Carbon Dioxide 27
BUN 22 H
Creatinine 3.0 H
Glucose 71
Calcium 8.6
Vital Signs:
Vital Signs
Temp Pulse Resp BP Pulse Ox
98.3 F 98 16 135/61 97
12/30/24 11:06 12/30/24 11:06 12/30/24 11:06 12/30/24 11:06 12/30/24 11:06
I&O
12/29/24 12/30/24 12/31/24
06:59 06:59 06:59
Intake Total 1200 / 1200 960 / 960
Balance 1200 / 1200 960 / 960
Review of Systems
-
All other systems: Reviewed and negative
Physical Exam
-
General: No Apparent Distress
HEENT: Moist Mucous Membranes, Anicteric and PERRLA
Respiratory: Clear to Auscultation; Negative Wheezes, Rales or Rhonchi
Cardiac: Regular Rhythm and S1/S2; Negative Murmur, Rub or Gallop
GI: Soft, Nontender, Nondistended and Normal Bowel Sounds
Musculoskeletal: No Edema and Other (No pain on palpation of left hip or groin, full painless ROM of left leg)
Skin: Warm and Dry; Negative Rash, Ulcers or Lesions
Neuro: Awake and AO x 3
Hematologic / Lymphatic: No Lymphadenopathy
Psych: Calm
Data Reviewed
-
CT Scan: Report Reviewed by me
Ultrasound: Report Reviewed by me
Labs: Labs Reviewed by me and Discussed with Patient
--- NOTE | 2024-12-30 15:28 | PN.CDI ---
CDI
- -
CDI:
Physician Documentation Request
Admit Date: 12/28/24 02:28
Dear Doctor Joseph,
Please review the following and provide your response in the progress notes.
Clinical Indicators:
Pt admitted with Pyelonephritis -recurrent transplant pyelonephritis.
Laboratory Tests
12/27/24 12/28/24 12/30/24
16:55 09:10 08:13
Sodium 131 L 131 L 131 L
Based on the above, could you clarify in the progress notes, the appropriate diagnosis, if significant, that supports the above Lab abnormalities and additional evaluation, monitoring and/or treatment rendered:
Hyponatremia
Insignificant abnormal lab values
Other
Use of terms such as suspected, likely, concern for, or probable (associated with a specific diagnosis that is being evaluated, monitored, or treated as if it exists) are acceptable and can be coded in the inpatient setting, when documented at the
time of discharge.
Thank you,
Maria E Rodriges RN, BSN
CDI Specialist
[place] [facility]
Please use your independent medical judgment in providing your response.
--- NOTE | 2024-12-30 16:03 | W.PN.ONC2 ---
Today's Communication / Plan
-
monitor CBC
OP follow up 3 months for repeat US LE
Impression
Impression
RLE DVT, progressed from 06/2023
chronic severe hydronephrosis
pyelonephritis
ESRD, kidney transplant 20yrs ago
Plan
Plan
Unclear when the progression to involve superficial femoral vein may have occurred.
Currently she has no signs or symptoms of RLE clot. She feels that the leg pain on the left was more sciatic in nature.
recheck Dopplers in 3 months.
continue Eliquis 5 BID, no load due to her small size and advanced age, presumed uremic platelet dysfunction and microcytic anemia
Subjective/Objective
Subjective
no new complaints
afebrile, no hypoxia or hypotension
denies bleeding
ambulating to bathroom
Vital Signs:
Vital Signs
Temp Pulse Resp BP Pulse Ox
98.1 F 99 16 123/80 95
12/30/24 15:30 12/30/24 15:30 12/30/24 15:30 12/30/24 15:30 12/30/24 15:30
Lab Results:
Laboratory Data
WBC 5.4 10^3/uL (4.8-10.8) 12/30/24 08:13
Hgb 9.4 g/dL (12.0-16.0) L 12/30/24 08:13
Plt Count 351 10^3/uL (130-400) 12/30/24 08:13
APTT Cancelled 12/29/24 14:19
eGFR 15.14 12/30/24 08:13
Physical Exam
HEENT: Moist Mucous Membranes; No Jaundice
Pulmonary: Other (unlabored)
[2024-12-30] MEDS: LIPITOR 10 MG PO (17:54)
[2024-12-30] MEDS: REMOVE LIDOCAINE PATCH 1 PATCH REMOVE (20:05)
[2024-12-31 02:22] VITALS: BP 156/73
[2024-12-31 06:00] VITALS: BMI 21.6
[2024-12-31 07:35] VITALS: BP 158/84
[2024-12-31 08:58] LABS: Hematocrit 30.6 % (37.0-47.0); Hemoglobin 9.8 g/dL (12.0-16.0); Mean Corp Hgb Conc. 32.0 g/dL (33.0-37.0); Mean Corpuscular Volume 83.6 fL (81.0-99.0); Platelet Count 309 10^3/uL (130-400); Red Cell Dist. Width 17.7 % (11.5-14.5)
[2024-12-31 09:29] LABS: Blood Urea Nitrogen 32 mg/dl (7-17); Calcium 8.6 mg/dl (8.4-10.2); Carbon Dioxide 25 mmol/L (22-30); Chloride 98 mmol/L (98-107); Estimated Creatinine Clearance 10 ml/min; Glucose 68 mg/dl (70-99); Potassium 4.2 mmol/L (3.5-5.1); Sodium 129 mmol/L (135-145); eGFR 11.77
[2024-12-31] MEDS: DELTASONE 2.5 MG PO (10:03)
[2024-12-31] MEDS: ELIQUIS 5 MG PO ×2 (10:03→19:47)
[2024-12-31] MEDS: PROTONIX 40 MG PO (10:03)
[2024-12-31] MEDS: ROCEPHIN 1000 MG IV (10:04)
[2024-12-31] MEDS: LIDOCAINE 4% PATCH 1 PATCH TOPICAL (10:04)
[2024-12-31] MEDS: STERILE WATER FOR INJECTION 10 ML IV (10:08)
[2024-12-31] MEDS: FLUSH (NSS) 1 FLUSH IV (10:13)
[2024-12-31] MEDS: NON-FORMULARY ITEM 225 MG PO ×2 (10:16→19:57)
[2024-12-31] MEDS: REFRESH EYE DROPS (PF) 1 DROPS OPHTH ×4 (10:23→21:01)
[2024-12-31] MEDS: NEORAL 25 MG PO ×2 (10:24→19:51)
[2024-12-31] MEDS: TYLENOL 650 MG PO (10:50)
--- NOTE | 2024-12-31 11:24 | W.PN.HOSP.TC ---
Addendum entered and electronically signed by Jesusita Ruiz MD 12/31/24 13:25:
for cdi- mild hyponatremia
Original Note:
Today's Communication/Plan
-
change abx to oral
resume metoprolol
d/c home tomorrow with [facility] PT/OT
Assessment / Plan
Assessment / Plan
Assessment/Plan
79F w/ ESRD s/p remote kidney transplant 20 years ago now with failure of the transplanted kidney and on hemodialysis (on Mon), hypertension, history of PE, history of prior urinary tract infection with pyelonephritis who p/w worsening
weakness, found to have pyelonephritis.
Pyelonephritis
Chronic hydronephrosis noted but no bladder distention to require an acute intervention.
-No leukocytosis
Urine culture E. coli pansensitive, s/p ceftriaxone, now change to oral. Given comorbidities, choosing cefixime to complete 7 day course.
End-stage renal disease
-failed renal transplant from 27 years ago. ESRD Tuesdays and Monday. ~1 week status post graft placement with site clean dry and intact without signs of infection or thrombus.
Living related renal transplant
-Continue antirejection regimen with cyclosporine 25 twice daily, prednisone 2.5 daily
-Nephrology consulted for hemodialysis
-Renal diet
New Acute Right Lower Extremity this Hospitalization (12/28/24 - present)
Pulmonary embolism
History of extensive acute right lower extremity DVT in 2022
-Acute RLE DVT found on ultrasound this admission for leg pains
-Per hematology, this is not an Eliquis failure (patient was on Eliquis 2.5 mg BID outpatient)
-Therefore, increase Eliquis to 5 mg BID (not doing 10 mg BID loading dose due to her small size and advanced age, presumed uremic platelet dysfunction and microcytic anemia), as per hematology
-No Heparin Drip needed
-Appreciate hematology
repeat US in 3 months
Paroxysmal atrial fibrillation
-Patient's son Tavares brought in patient's home Propafenone on 12/29/24
confirmed metoprolol 25mg BID with pt's daughter (hold on HD days)
-Monitor for [employer] effects (dizziness) and consider EKG to check QTc
Right Eye Tearing/Soreness/Mild Erythema
-Refresh eye drops -- ordered 1 drop QID scheduled
-No indication for antibiotics or steroids ([facility] partner confirmed this with ophthalmology after sending them images of patient's right eye; this was done with patient's permission)
-Cool compress (with the eyes closed) -- BUT NOT ICE
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
- topical lidocaine
- acetaminophen prn
- PT
Chronic Anemia
- Suspected at least in part due to renal disease
Hypertension
BP elevated. Pt normally on metoprolol 25mg BID, hold morning dose on HD days. Will resume.
Hyperlipidemia
DVT Prophylaxis: Eliquis
Code status - Full code at this time
Anticipated Discharge: Within 24 hours
Subjective/Interval History
-
Date of Service: December 31, 2024
Patient denies acute issues overnight, notes that sciatica was acting up when working with PT
Spoke to patient's daughter on speaker phone in patient's room and gave updates, plan is for discharge to home with home health PT/OT tomorrow morning, patient is agreeable. She lives with her and has a home health aide.
Objective Data
-
Labs:
Laboratory Results
12/31/24
07:18
WBC 5.6
Hgb 9.8 L
Hct 30.6 L
Plt Count 309
Sodium 129 L
Potassium 4.2
Chloride 98
Carbon Dioxide 25
BUN 32 H
Creatinine 3.7 H
Glucose 68 L
Calcium 8.6
Vital Signs:
Vital Signs
Temp Pulse Resp BP Pulse Ox
97.5 F 87 16 158/84 98
12/31/24 07:35 12/31/24 07:35 12/31/24 07:35 12/31/24 07:35 12/31/24 07:35
I&O
12/30/24 12/31/24 01/01/25
06:59 06:59 06:59
Intake Total 960 / 960 720 / 720
Balance 960 / 960 720 / 720
Review of Systems
-
All other systems: Reviewed and negative
Physical Exam
-
General: No Apparent Distress
HEENT: Moist Mucous Membranes, Anicteric and PERRLA
Respiratory: Clear to Auscultation; Negative Wheezes, Rales or Rhonchi
Cardiac: Regular Rhythm and S1/S2; Negative Murmur, Rub or Gallop
GI: Soft, Nontender, Nondistended and Normal Bowel Sounds
Musculoskeletal: No Edema and Other (No pain on palpation of left hip or groin, full painless ROM of left leg)
Skin: Warm and Dry; Negative Rash, Ulcers or Lesions
Neuro: Awake and AO x 3
Hematologic / Lymphatic: No Lymphadenopathy
Psych: Calm
Data Reviewed
-
Labs: Labs Reviewed by me, Discussed with Patient and Discussed with Family
[2024-12-31 11:26] LABS: Nucleated Red Blood Cells % 0.7 %
--- NOTE | 2024-12-31 11:47 | W.PN.ONC ---
Today's Communication / Plan
-
Continue Eliquis 5mg BID
Watch for bleeding
Impression
Impression
RLE DVT, progressed from 06/2023
chronic severe hydronephrosis
pyelonephritis
ESRD, kidney transplant 20yrs ago
Plan
Plan
Unclear when the progression to involve superficial femoral vein may have occurred.
Currently she has no signs or symptoms of RLE clot. She feels that the leg pain on the left was more sciatic in nature.
continue Eliquis 5 BID, no load due to her small size and advanced age, presumed uremic platelet dysfunction and microcytic anemia
watch for bleeding
t/c recheck Dopplers in 3 months
Subjective/Objective
Subjective/Objective
No complaints, no pain/swelling in RLE. No bleeding on Eliquis.
Vital Signs:
Vital Signs
Temp Pulse Resp BP Pulse Ox
97.5 F 87 16 158/84 98
12/31/24 07:35 12/31/24 07:35 12/31/24 07:35 12/31/24 07:35 12/31/24 07:35
Lab Results:
Laboratory Data
WBC 5.6 10^3/uL (4.8-10.8) 12/31/24 07:18
Hgb 9.8 g/dL (12.0-16.0) L 12/31/24 07:18
Plt Count 309 10^3/uL (130-400) 12/31/24 07:18
APTT Cancelled 12/29/24 14:19
eGFR 11.77 12/31/24 07:18
[2024-12-31 12:42] VITALS: BP 148/73
[2024-12-31] MEDS: RETACRIT 4000 UNITS IV (13:36)
[2024-12-31] MEDS: MANNITOL 25% 12.5 GRAMS IV (13:38)
--- NOTE | 2024-12-31 14:49 | W.PN.NEPH.HD ---
Assessment
-
Tolerating treatment
Progress Note - Hemodialysis
-
Date of Service: December 31, 2024
Duration: 30 minutes and 3 hours
Potassium Bath: 3
Calcium Bath: 2.5
Opti-Dialyzer: 160
Ultrafiltration: Other
Blood Flow: 400
Dialysate Flow: 600
Heparin: 500x2
EPO: 60810 units
[2024-12-31 14:59] VITALS: BP 126/59
[2024-12-31] MEDS: LIPITOR 10 MG PO (18:12)
[2024-12-31 19:35] VITALS: BP 138/72
[2024-12-31] MEDS: REMOVE LIDOCAINE PATCH 1 PATCH REMOVE (19:47)
[2024-12-31 23:40] VITALS: BP 148/75
[2025-01-01] VITALS (8 sets, daily range): BP systolic 107–163; BP diastolic 62–79; PULSE 99–110; O2SAT 97; BMI 21.5
--- NOTE | 2025-01-01 02:20 | DOWNTIME ---
There was a [employer] Downtime on 01/01/2025 from 0100 to 01/01/2025 at 0215. Downtime documentation of patient's care, including medication administrations, has been reconciled in the electronic record per guidelines. Refer to the
patient's paper chart under the miscellaneous tab to see printed paper medication records and downtime forms.
[2025-01-01 08:11] LABS: Hematocrit 30.1 % (37.0-47.0); Hemoglobin 9.3 g/dL (12.0-16.0); Mean Corp Hgb Conc. 30.9 g/dL (33.0-37.0); Mean Corpuscular Volume 84.3 fL (81.0-99.0); Platelet Count 283 10^3/uL (130-400); Red Cell Dist. Width 18.3 % (11.5-14.5)
[2025-01-01 08:30] LABS: Blood Urea Nitrogen 14 mg/dl (7-17); Calcium 8.1 mg/dl (8.4-10.2); Carbon Dioxide 29 mmol/L (22-30); Chloride 102 mmol/L (98-107); Estimated Creatinine Clearance 16 ml/min; Glucose 71 mg/dl (70-99); Potassium 3.9 mmol/L (3.5-5.1); Sodium 131 mmol/L (135-145); eGFR 20.83
[2025-01-01 09:02] LABS: Nucleated Red Blood Cells % 0 %
[2025-01-01] MEDS: ELIQUIS 5 MG PO ×2 (09:30→19:33)
[2025-01-01] MEDS: LIDOCAINE 4% PATCH 1 PATCH TOPICAL (09:30)
[2025-01-01] MEDS: DELTASONE 2.5 MG PO (09:30)
[2025-01-01] MEDS: PROTONIX 40 MG PO (09:30)
[2025-01-01] MEDS: NON-FORMULARY ITEM 225 MG PO ×2 (09:31→19:38)
[2025-01-01] MEDS: ROCEPHIN 1000 MG IV (09:32)
[2025-01-01] MEDS: STERILE WATER FOR INJECTION 10 ML IV (09:32)
[2025-01-01] MEDS: FLUSH (NSS) 1 FLUSH IV (09:33)
[2025-01-01] MEDS: REFRESH EYE DROPS (PF) 1 DROPS OPHTH ×4 (09:45→21:26)
[2025-01-01] MEDS: NEORAL 25 MG PO ×2 (09:45→19:33)
--- NOTE | 2025-01-01 13:22 | W.DCSUMMARY ---
Discharge Summary
Discharge Data
Date of Admission: 12/28/24
Date of Discharge: 01/01/25
Total time spent discharging patient (in min): 40
-
Pending Results: No
Hospital Course
Attending physician on day of discharge:
Jesusita Ruiz MD
Admission diagnosis:
Discharge diagnosis:
Secondary diagnoses:
Consultations:
Procedures:
Hospital course:
Physical exam on discharge:
Discharge disposition:
Discharge Plan
-
Patient Disposition: Home with Home Care
Discharge Diagnosis/Procedures: Pyelonephritis
Diet: Other diet
Additional Diets: Renal diet
Activity: With assistance
Referrals:
Araceli Batres MD [Active, Hematology / Oncology]
Gaurav Al MD [Active, Nephrology]
Russel Zee MD [Family Provider, Family Practice]
Additional Discharge Medication Instructions: The vascular surgery team was asked to evaluate your sutures to be removed, they have determined the best course of action is for you to follow up with your outpatient surgeon in their office to have
them removed.
Prescriptions:
New
Eliquis 5 mg Tablet
5 mg PO BID Qty: 60 0RF
amoxicillin-pot clavulanate 500-125 mg tablet
1 tab PO DAILY 5 Days Qty: 5 0RF
Rx Instructions:
TAKE EVERY DAY. ON DIALYSIS DAYS, TAKE AFTER THE DIALYSIS SESSION.
Continued
cyclosporine modified 25 MG capsule
25 mg PO BID
atorvastatin 10 MG tablet
10 mg PO QPM
Centrum Silver 1 EACH tablet
1 ea PO DAILY
pantoprazole 40 MG tablet,delayed release (DR/EC)
40 mg PO DAILY
prednisone 2.5 mg Tablet
2.5 mg PO DAILY
propafenone 225 mg Capsule,Extended Release 12 Hr
225 mg PO Q12H
Discontinued
Eliquis 5 mg tablet
2.5 mg PO BID
Discharge Orders:
Discharge Patient (As Directed); Ordered 01/01/25
Ordered By: Jesusita Ruiz
Discharge Date and Time
Print Language: MAURITIAN
--- NOTE | 2025-01-01 13:45 | CM ---
Chart reviewed. Patient has d/c order in
Met w/ patient bedside, made aware d/c is in. Patient confirmed she has support from spouse and daughter who is a nurse and lives nearby. Patient stated she feels light headed and dizzy, doesn't feel like she can go home today
Patient confirmed she is current w/ [facility] but is on hold w/ services
IMM verbally reviewed, copy provided, copy on chart
TT hospitalist regarding patient's concerns, will cancel d/c today and follow up w/ nurse
NANCY referral to [facility] sent in [facility]
Plan: Home, NANCY w/ [facility]
--- NOTE | 2025-01-01 14:56 | W.PN.NEPH.PH ---
Today's Communication / Plan
-
HD tomorrow
Assessment/Plan
-
Assessment
Hypertension
ESRD
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
Transplant pyelonephritis
UTI
Paroxysmal atrial fibrillation
Failed AV graft
Plan
TTS HD
antibiotics
Maintain low-dose immunosuppression
for anticoagulation
HD tomorrow
-
-
Date of Service: January 01, 2025
CC / HPI / ROS
-
Chief Complaint:
ESRD
History of Present Illness:
tolerated HD yesterday
BP stable
RLE DVT on US
on abx for transplant pyelonephritis
Review of Systems:
no CP/SOB
Labs
-
Labs:
WBC 5.6 10^3/uL (4.8-10.8) 01/01/25 07:33
RBC 3.57 10^6/uL (4.20-5.40) L 01/01/25 07:33
Hgb 9.3 g/dL (12.0-16.0) L 01/01/25 07:33
Hct 30.1 % (37.0-47.0) L 01/01/25 07:33
Plt Count 283 10^3/uL (130-400) 01/01/25 07:33
Sodium 131 mmol/L (135-145) L 01/01/25 07:33
Potassium 3.9 mmol/L (3.5-5.1) 01/01/25 07:33
Chloride 102 mmol/L (98-107) 01/01/25 07:33
Carbon Dioxide 29 mmol/L (22-30) 01/01/25 07:33
BUN 14 mg/dl (7-17) 01/01/25 07:33
Creatinine 2.3 mg/dL (0.6-1.0) H 01/01/25 07:33
eGFR 20.83 01/01/25 07:33
Glucose 71 mg/dl (70-99) 01/01/25 07:33
Calcium 8.1 mg/dl (8.4-10.2) L 01/01/25 07:33
Albumin 2.5 g/dl (3.5-5.0) L 12/27/24 16:55
Physical Exam
-
Vital Signs:
Vital Signs
Temp Pulse Resp BP Pulse Ox
98.3 F 110 16 115/76 97
01/01/25 12:16 01/01/25 12:16 01/01/25 12:16 01/01/25 12:16 01/01/25 12:16
Cardiovascular:: Regular rate and rhythm
Respiratory:: Bilateral: CTA
Lung Excursion:: Normal
Abdomen:: Nontender and Soft
Bowel Sounds:: Normal
Extremity Edema:: None: Bilateral:
--- NOTE | 2025-01-01 16:19 | W.PN.HOSP.TC ---
Today's Communication/Plan
-
Discharge canceled due to patient's lightheadedness, check orthostatics
Assessment / Plan
Assessment / Plan
Assessment/Plan
79F w/ ESRD s/p remote kidney transplant 20 years ago now with failure of the transplanted kidney and on hemodialysis (on Mon), hypertension, history of PE, history of prior urinary tract infection with pyelonephritis who p/w worsening
weakness, found to have pyelonephritis.
Pyelonephritis
Chronic hydronephrosis noted but no bladder distention to require an acute intervention.
-No leukocytosis
Urine culture E. coli pansensitive, s/p ceftriaxone, change to oral Augmentin on discharge, given comorbidities, to complete 10 day course.
End-stage renal disease
-failed renal transplant from 27 years ago. ESRD Tuesdays and Monday. ~1 week status post graft placement with site clean dry and intact without signs of infection or thrombus.
Living related renal transplant
-Continue antirejection regimen with cyclosporine 25 twice daily, prednisone 2.5 daily
-Nephrology consulted for hemodialysis
-Renal diet
I asked vascular surgery to evaluate her to remove her sutures in her AV fistula, they recommend her following up with her outpatient surgeon instead. On exam there is faint audible bruit, no palpable thrill
New Acute Right Lower Extremity this Hospitalization (12/28/24 - present)
Pulmonary embolism
History of extensive acute right lower extremity DVT in 2022
-Acute RLE DVT found on ultrasound this admission for leg pains
-Per hematology, this is not an Eliquis failure (patient was on Eliquis 2.5 mg BID outpatient)
-Therefore, increase Eliquis to 5 mg BID (not doing 10 mg BID loading dose due to her small size and advanced age, presumed uremic platelet dysfunction and microcytic anemia), as per hematology
-No Heparin Drip needed
-Appreciate hematology
repeat US in 3 months
Paroxysmal atrial fibrillation
-Patient's son Tavares brought in patient's home Propafenone on 12/29/24
confirmed metoprolol 25mg BID with pt's daughter (hold on HD days)
-Monitor for [employer] effects (dizziness) and consider EKG to check QTc
Right Eye Tearing/Soreness/Mild Erythema
-Refresh eye drops -- ordered 1 drop QID scheduled
-No indication for antibiotics or steroids ([facility] partner confirmed this with ophthalmology after sending them images of patient's right eye; this was done with patient's permission)
-Cool compress (with the eyes closed) -- BUT NOT ICE
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
- topical lidocaine
- acetaminophen prn
- PT
Hyponatremia
Mild, asymptomatic
Chronic Anemia
- Suspected at least in part due to renal disease
Hypertension
BP elevated. Pt normally on metoprolol 25mg BID, hold morning dose on HD days. Will resume.
Check orthostatic BP for dizziness, tiredness
Hyperlipidemia
DVT Prophylaxis: Eliquis
Code status - Full code at this time
Anticipated Discharge: Within 24 hours
Subjective/Interval History
-
Date of Service: January 01, 2025
When patient seen in a.m. she noted she was feeling okay, but later in the day she felt dizzy and lightheaded
Objective Data
-
Labs:
Laboratory Results
01/01/25
07:33
WBC 5.6
Hgb 9.3 L
Hct 30.1 L
Plt Count 283
Sodium 131 L
Potassium 3.9
Chloride 102
Carbon Dioxide 29
BUN 14
Creatinine 2.3 H
Glucose 71
Calcium 8.1 L
Vital Signs:
Vital Signs
Temp Pulse Resp BP Pulse Ox
98.3 F 106 16 107/62 98
01/01/25 15:35 01/01/25 15:35 01/01/25 15:35 01/01/25 15:35 01/01/25 15:35
I&O
12/31/24 01/01/25 01/02/25
06:59 06:59 06:59
Intake Total 720 / 720 1300 / 1300
Balance 720 / 720 1300 / 1300
Review of Systems
-
All other systems: Reviewed and negative
Physical Exam
-
General: No Apparent Distress
HEENT: Moist Mucous Membranes, Anicteric and PERRLA
Respiratory: Clear to Auscultation; Negative Wheezes, Rales or Rhonchi
Cardiac: Regular Rhythm, S1/S2 and Other (Left arm AV fistula with quite faint audible bruit, cannot feel a thrill); Negative Murmur, Rub or Gallop
GI: Soft, Nontender, Nondistended and Normal Bowel Sounds
Musculoskeletal: No Edema
Skin: Warm and Dry; Negative Rash, Ulcers or Lesions
Neuro: Awake and AO x 3
Hematologic / Lymphatic: No Lymphadenopathy
Psych: Calm
Data Reviewed
-
Labs: Labs Reviewed by me and Discussed with Patient
[2025-01-01] MEDS: LIPITOR 10 MG PO (18:22)
[2025-01-01] MEDS: REMOVE LIDOCAINE PATCH 1 PATCH REMOVE (19:39)
[2025-01-02 06:00] VITALS: BMI 21.7
[2025-01-02 07:11] VITALS: BP 150/83
[2025-01-02 08:30] LABS: Hematocrit 31.6 % (37.0-47.0); Hemoglobin 9.9 g/dL (12.0-16.0); Mean Corp Hgb Conc. 31.3 g/dL (33.0-37.0); Mean Corpuscular Volume 85.2 fL (81.0-99.0); Platelet Count 290 10^3/uL (130-400); Red Cell Dist. Width 18.6 % (11.5-14.5)
[2025-01-02 08:39] LABS: Blood Urea Nitrogen 22 mg/dl (7-17); Calcium 8.3 mg/dl (8.4-10.2); Carbon Dioxide 27 mmol/L (22-30); Chloride 100 mmol/L (98-107); Estimated Creatinine Clearance 12 ml/min; Glucose 80 mg/dl (70-99); Potassium 3.9 mmol/L (3.5-5.1); Sodium 131 mmol/L (135-145); eGFR 14.56
[2025-01-02] MEDS: RETACRIT 4000 UNITS IV (08:56)
[2025-01-02] MEDS: FLEXBUMIN 25% FOR HEMODIALYSIS 12.5 GRAMS IV ×2 (08:56→10:12)
[2025-01-02] MEDS: TYLENOL 650 MG PO (10:17)
--- NOTE | 2025-01-02 10:20 | W.PN.NEPH.HD ---
Assessment
-
Seen on HD. feeling better. VSS, access ok
dc after HD
Progress Note - Hemodialysis
-
Date of Service: January 02, 2025
Duration: 30 minutes and 3 hours
Potassium Bath: 3
Calcium Bath: 2.5
Opti-Dialyzer: 160
Ultrafiltration: Other (1kg)
Blood Flow: 400
Dialysate Flow: 600
Heparin: 0
EPO: 4000 units
[2025-01-02] MEDS: HEPARIN 3600 UNITS INTRACATH (11:05)
--- NOTE | 2025-01-02 11:18 | CM ---
Patient will d/c today after HD
Family will transport home
[facility] accepted, will contact patient for SOC
[facility]
-----> FAX D/C SUMMARY
Plan: Home w/ [facility]
[2025-01-02] MEDS: PROTONIX 40 MG PO (12:21)
[2025-01-02] MEDS: DELTASONE 2.5 MG PO (12:21)
[2025-01-02] MEDS: STERILE WATER FOR INJECTION 10 ML IV (12:22)
[2025-01-02] MEDS: ROCEPHIN 1000 MG IV (12:23)
[2025-01-02] MEDS: NEORAL 25 MG PO (12:23)
[2025-01-02] MEDS: REFRESH EYE DROPS (PF) 1 DROPS OPHTH (12:23)
[2025-01-02] MEDS: NON-FORMULARY ITEM 225 MG PO (12:24)
[2025-01-02] MEDS: LIDOCAINE 4% PATCH 1 PATCH TOPICAL (12:26)
[2025-01-02] MEDS: ELIQUIS 5 MG PO (12:27)
[2025-01-02] MEDS: REFRESH EYE DROPS (PF) OPHTH (12:53)
[2025-01-02 14:55] VITALS: BP 140/61; BP 149/74; BP 151/74; PULSE 101; PULSE 110; PULSE 119
--- NOTE | 2025-01-02 14:58 | W.DCSUMMARY ---
Discharge Summary
Discharge Data
Date of Admission: 12/28/24
Date of Discharge: 01/02/25
Total time spent discharging patient (in min): 40
-
Pending Results: No
Hospital Course
Attending physician on day of discharge:
Jesusita Ruiz MD
Admission diagnosis:
Pyleonephritis
Consultations:
Nephrology
Heme
Procedures:
HD
Hospital course:
79F w/ ESRD s/p remote kidney transplant 20 years ago now with failure of the transplanted kidney and on hemodialysis (on Mon), hypertension, history of PE, history of prior urinary tract infection with pyelonephritis who p/w worsening
weakness, found to have pyelonephritis 2/2 lorenz-S E.Coli. She was treated with IV antibiotics and transitioned to oral on discharge. Asked vascular surgery to evaluate her to remove her sutures in her AV fistula, they recommend her following up with
her outpatient surgeon instead. Pt found to have New Acute Right Lower Extremity thrombosis and her eliquis was increased to 5mg BID.
Physical exam on discharge:
Gen: NAD
HEENT: PERRLA, EOMI, MMM, neck supple
Cards: RRR, no M/G/R. No thrill on AV fistula.
Resp: Lungs CTAB, no W/R/R
GI: soft, NT/ND/NABS
MSK: No edema
Skin: warm and dry, no rash, ulcer or lesions
Heme: No LAD
Psych: Calm
Neuro: AAOx3
Discharge disposition:
home with home health services
Discharge Plan
-
Patient Disposition: Home with Home Care
Discharge Diagnosis/Procedures: Pyelonephritis
Diet: Other diet
Additional Diets: Renal diet
Activity: With assistance
Referrals:
Araceli Batres MD [Active, Hematology / Oncology]
Gaurav Al MD [Active, Nephrology]
Russel Zee MD [Family Provider, [facility]]
Additional Discharge Medication Instructions: The vascular surgery team was asked to evaluate your sutures to be removed, they have determined the best course of action is for you to follow up with your outpatient surgeon in their office to have
them removed.
Prescriptions:
New
Eliquis 5 mg Tablet
5 mg PO BID Qty: 60 0RF
amoxicillin-pot clavulanate 500-125 mg tablet
1 tab PO DAILY 5 Days Qty: 5 0RF
Rx Instructions:
TAKE EVERY DAY. ON DIALYSIS DAYS, TAKE AFTER THE DIALYSIS SESSION.
Continued
cyclosporine modified 25 MG capsule
25 mg PO BID
atorvastatin 10 MG tablet
10 mg PO QPM
Centrum Silver 1 EACH tablet
1 ea PO DAILY
pantoprazole 40 MG tablet,delayed release (DR/EC)
40 mg PO DAILY
prednisone 2.5 mg Tablet
2.5 mg PO DAILY
propafenone 225 mg Capsule,Extended Release 12 Hr
225 mg PO Q12H
Discontinued
Eliquis 5 mg tablet
2.5 mg PO BID
Discharge Orders:
Discharge Patient (As Directed); Ordered 01/02/25
Ordered By: Jesusita Ruiz
Discharge Date and Time
Print Language: SLOVAK
[2025-01-02 15:51] VITALS: BP 140/61
== END 2025-01-02 16:30 | disposition home health service (06) | DRG 698 ==
LOC: 4 WEST ACU 02:28
PROVIDERS: Emergency Medicine; Hospitalist; Internal Medicine Nephrology; Nurse Practitioner; ADMITTING PHYSICIAN Internal Medicine; ATTENDING PHYSICIAN Internal Medicine; CONSULT PHYSICIAN Internal Medicine Hematology & Oncology; CONSULT PHYSICIAN Specialist; EMERGENCY PHYSICIAN Emergency Medicine; FAMILY PHYSICIAN Family Medicine
PROC: 5A1D70Z Performance of Urinary Filtration, Intermittent, Less than 6 Hours Per Day (ICD-10-PCS; 2024-12-28)
DX: T86.13 Kidney transplant infection (principal); N18.6 End stage renal disease; N13.6 Pyonephrosis; I12.0 Hypertensive chronic kidney disease with stage 5 chronic kidney disease or end stage renal disease; T86.11 Kidney transplant rejection; T86.12 Kidney transplant failure; Z86.711 Personal history of pulmonary embolism; Z87.440 Personal history of urinary (tract) infections; Z99.2 Dependence on renal dialysis; E78.00 Pure hypercholesterolemia, unspecified; Z88.2 Allergy status to sulfonamides; Z88.0 Allergy status to penicillin; Z79.01 Long term (current) use of anticoagulants; I48.0 Paroxysmal atrial fibrillation; Y83.0 Surgical operation with transplant of whole organ as the cause of abnormal reaction of the patient, or of later complication, without mention of misadventure at the time of the procedure; Z86.718 Personal history of other venous thrombosis and embolism; D50.9 Iron deficiency anemia, unspecified; R54 Age-related physical debility; Z11.52 Encounter for screening for COVID-19
CPT/HCPCS: 51798; 74176; 80048; 80053; 81003; 81015; 83735; 85025; 85027; 87070; 87077; 87086; 87186; 87811; 93005; 93970; 96374; 97116; 97162; 97530; 99285; G0257; P9047; Q5106